=== PATIENT | female | born 1960 | race Caucasian/White ===

== ENCOUNTER 2018-02-06 11:32 | Emergency (ER) | payer BC ==
[~2018-02-06] VITALS: Ht 177.8 cm; Wt 98.0 kg
[~2018-02-06 11:32] MED LIST: KETO10TA PO; ONDA4TAB10 SL
[2018-02-06] MEDS ORDERED: IOHEXOL 300 MG/ML 75 ML VIAL. IV ONE (12:15)
[2018-02-06] MEDS ORDERED: CONTRAST GIVEN MC PRN (12:15)
[2018-02-06 12:36] LABS: BASO % 1 % (0-3); EOS # 0.1 x10^3/uL (0.0-0.7); EOS % 2 % (0-3); HEMATOCRIT 35.8 % (36.0-47.0); HEMOGLOBIN 12.2 g/dL (12.0-15.5); LYMPH # 0.7 x10^3/uL (1.0-4.8); LYMPH % 27 % (24-48); MEAN CORPUSCULAR HEMOGLOBIN 31 pg (25-35); MEAN CORPUSCULAR HGB CONC 34 g/dL (31-37); MEAN CORPUSCULAR VOLUME 90 fL (79-100); MONO # 0.4 x10^3/uL (0.0-1.1); MONO % 16 % (0-9); NEUT # 1.5 x10^3uL (1.8-7.7); NEUT % 54 % (31-73); PLATELET COUNT 225 x10^3/uL (140-400); RED BLOOD COUNT 3.99 x10^6/uL (3.50-5.40); RED CELL DISTRIBUTION WIDTH 16.7 % (11.5-14.5); WHITE BLOOD COUNT 2.8 x10^3/uL (4.0-11.0)
[2018-02-06 13:00] LABS: ALBUMIN 3.2 g/dL (3.4-5.0); CALCIUM 8.8 mg/dL (8.5-10.1); CREATININE 0.7 mg/dL (0.6-1.0); GFR 86.9; TOTAL BILIRUBIN 0.3 mg/dL (0.2-1.0); TOTAL PROTEIN 6.4 g/dL (6.4-8.2)
--- NOTE | 2018-02-06 13:15 | RAD ---
CT ANGIOGRAPHY CHEST Indication: shortness of breath, history of metastatic colon cancer, OMNI 300, 75 ml . Comparison: No comparison is available. Technique: After intravenous contrast administration, CT imaging was performed of the chest. MIP reconstructions were obtained. Exposure: One or more of the following individualized dose reduction techniques were utilized for this examination: 1. Automated exposure control 2. Adjustment of the mA and/or kV according to patient size 3. Use of iterative reconstruction technique. FINDINGS: Pulmonary arteries:No evidence of pulmonary embolism. Thoracic aorta: No evidence of aortic aneurysm. Thyroid gland:Visualized aspect is unremarkable. Lymph nodes:No significant enlargement Heart: No significant pericadial effusion. Esophagus: Unremarkable Pleural spaces: No significant effusion Lungs: Small nodule identified at the right upper lobe, measures 4 mm. No airspace consolidation. Trachea and central airways: Patent Bones: Degenerative spondylosis. Mild left convexity scoliosis. Upper abdomen: Slices through the upper abdomen are limited due to the technique .No obvious acute findings. There is a left chest wall port, with tip identified in the superior vena cava. IMPRESSION: 1. Negative for pulmonary embolism. 2. Small right upper lobe pulmonary nodule, measures 4 mm. Since the patient has a history of metastatic colon cancer, a metastatic lesion is possible. Recommend follow-up CT of the chest, in 3-4 months. Electronically signed by: Velasquez Allen MD (02/06/2018 1:11 PM) [id number]
[2018-02-06] MEDS ORDERED: ALBU8.5H8 INH (13:35)
--- NOTE | 2018-02-06 13:36 | PHYS DOC ---
Past History Past Medical History: Cancer, Pancreatitis, Other Additional Past Medical Histor: Mother had colon cancer, diagnosed in her 50's Past Surgical History: No Surgical History, Smoking: Cigarettes Alcohol Use: Sober Drug Use: None Adult General Chief Complaint Chief Complaint: SHORTNESS OF BREATH HPI HPI Patient is a 57 year old with history of stage IV colon cancer on chemotherapy and history of DVT on Eliquis who presents with complaining of shortness of breath for the last 1 week. Patient complaining of intermittent episodes of shortness of breath with mild activity without palpitation, chest pain, fever and chills, cough and congestion. Patient states she had history of DVT and was on Lovenox for 2 years and she sent the was changed to Eliquis 2.5 mg 2 times a day and his oncologist is concern for possible PE. Review of Systems Review of Systems Constitutional: Denies fever or chills [] Eyes: Denies change in visual acuity, redness, or eye pain [] HENT: Denies nasal congestion or sore throat [] Respiratory: Denies cough, reports shortness of breath [] Cardiovascular: No additional information not addressed in HPI [] GI: Denies abdominal pain, nausea, vomiting, bloody stools or diarrhea [] : Denies dysuria or hematuria [] Musculoskeletal: Denies back pain or joint pain [] Integument: Denies rash or skin lesions [] Neurologic: Denies headache, focal weakness or sensory changes [] Endocrine: Denies polyuria or polydipsia [] All other systems were reviewed and found to be within normal limits, except as documented in this note. Current Medications Current Medications Current Medications Medications (Trade) Dose Ordered Sig/Al Start Time Stop Time Status Last Admin Dose Admin Info (Do NOT chart on this entry -- for MONITORING) 1 each PRN DAILY PRN 02/06/18 12:15 02/08/18 12:14 Iohexol (Omnipaque 300 Mg/ml) 75 ml 1X ONCE 02/06/18 12:15 02/06/18 12:16 DC 02/06/18 12:32 75 ML Allergies Allergies Allergies Coded Allergies Type Severity Reaction Last Updated Verified No Known Drug Allergies 10/13/15 No Physical Exam Physical Exam Constitutional: Well developed, well nourished, no acute distress, non-toxic appearance. [] HENT: Normocephalic, atraumatic, oropharynx moist, no oral exudates, nose normal. [] Eyes: PERRLA, EOMI, conjunctiva normal, no discharge. [] Neck: Normal range of motion, no tenderness, supple, no stridor. [] Cardiovascular:Heart rate regular rhythm, no murmur [] Lungs & Thorax: Bilateral breath sounds clear to auscultation [] Abdomen: Bowel sounds normal, soft, no tenderness, no masses, no pulsatile masses. [] Skin: Warm, dry, no erythema, no rash. [] Back: No tenderness, no CVA tenderness. [] Extremities: No tenderness, no cyanosis, no clubbing, ROM intact, no edema. [] Neurologic: Alert and oriented X 3, normal motor function, normal sensory function, no focal deficits noted. [] Psychologic: Affect normal, judgement normal, mood normal. [] Current Patient Data Vital Signs Vital Signs Date Time Temp Pulse Resp B/P (MAP) Pulse Ox O2 Delivery O2 Flow Rate FiO2 02/06/18 11:51 98.4 93 20 99 Room Air Lab Results Laboratory Tests Test 02/06/18 12:08 White Blood Count 2.8 x10^3/uL (4.0-11.0) L Red Blood Count 3.99 x10^6/uL (3.50-5.40) Hemoglobin 12.2 g/dL (12.0-15.5) Hematocrit 35.8 % (36.0-47.0) L Mean Corpuscular Volume 90 fL (79-100) Mean Corpuscular Hemoglobin 31 pg (25-35) Mean Corpuscular Hemoglobin Concent 34 g/dL (31-37) Red Cell Distribution Width 16.7 % (11.5-14.5) H Platelet Count 225 x10^3/uL (140-400) Neutrophils (%) (Auto) 54 % (31-73) Lymphocytes (%) (Auto) 27 % (24-48) Monocytes (%) (Auto) 16 % (0-9) H Eosinophils (%) (Auto) 2 % (0-3) Basophils (%) (Auto) 1 % (0-3) Neutrophils # (Auto) 1.5 x10^3uL (1.8-7.7) L Lymphocytes # (Auto) 0.7 x10^3/uL (1.0-4.8) L Monocytes # (Auto) 0.4 x10^3/uL (0.0-1.1) Eosinophils # (Auto) 0.1 x10^3/uL (0.0-0.7) Basophils # (Auto) 0.0 x10^3/uL (0.0-0.2) Sodium Level 133 mmol/L (136-145) L Potassium Level 4.0 mmol/L (3.5-5.1) Chloride Level 96 mmol/L (98-107) L Carbon Dioxide Level 26 mmol/L (21-32) Anion Gap 11 (6-14) Blood Urea Nitrogen 11 mg/dL (7-20) Creatinine 0.7 mg/dL (0.6-1.0) Estimated GFR (Cockcroft-Gault) 86.9 BUN/Creatinine Ratio 16 (6-20) Glucose Level 89 mg/dL (70-99) Calcium Level 8.8 mg/dL (8.5-10.1) Total Bilirubin 0.3 mg/dL (0.2-1.0) Aspartate Amino Transferase (AST) 20 U/L (15-37) Alanine Aminotransferase (ALT) 18 U/L (14-59) Alkaline Phosphatase 83 U/L (46-116) Troponin I Quantitative < 0.017 ng/mL (0-0.055) NO-Ffe-Z-Type Natriuretic Peptide 77 pg/mL (0-124) Total Protein 6.4 g/dL (6.4-8.2) Albumin 3.2 g/dL (3.4-5.0) L Albumin/Globulin Ratio 1.0 (1.0-1.7) EKG EKG [] Radiology/Procedures Radiology/[place] [address] IMAGING REPORT Signed PATIENT: HERNANDO MCNAMARA ACCOUNT: [id number] : 1960 LOCATION: ER AGE: 57 SEX: F EXAM STATUS: REG ER ORD. PHYSICIAN: ALEXANDRE BIRCH MD REASON: shortness of breath, history of metastatic colon cancer PROCEDURE: CT ANGIOGRAPHY CHEST CT ANGIOGRAPHY CHEST Indication: shortness of breath, history of metastatic colon cancer, OMNI 300, 75 ml . Comparison: No comparison is available. Technique: After intravenous contrast administration, CT imaging was performed of the chest. MIP reconstructions were obtained. Exposure: One or more of the following individualized dose reduction techniques were utilized for this examination: 1. Automated exposure control 2. Adjustment of the mA and/or kV according to patient size 3. Use of iterative reconstruction technique. FINDINGS: Pulmonary arteries:No evidence of pulmonary embolism. Thoracic aorta: No evidence of aortic aneurysm. Thyroid gland:Visualized aspect is unremarkable. Lymph nodes:No significant enlargement Heart: No significant pericadial effusion. Esophagus: Unremarkable Pleural spaces: No significant effusion Lungs: Small nodule identified at the right upper lobe, measures 4 mm. No airspace consolidation. Trachea and central airways: Patent Bones: Degenerative spondylosis. Mild left convexity scoliosis. Upper abdomen: Slices through the upper abdomen are limited due to the technique .No obvious acute findings. There is a left chest wall port, with tip identified in the superior vena cava. IMPRESSION: 1. Negative for pulmonary embolism. 2. Small right upper lobe pulmonary nodule, measures 4 mm. Since the patient has a history of metastatic colon cancer, a metastatic lesion is possible. Recommend follow-up CT of the chest, in 3-4 months. Electronically signed by: Velasquez Allen MD (02/06/2018 1:11 PM) [id number] DICTATED AND SIGNED BY: VELASQUEZ ALLEN MD DATE: 02/06/18 1300 CC: ALEXANDRE BIRCH MD; KELSEY ALVAREZ MD ~ Course & Med Decision Making Course & Med Decision Making Pertinent Labs and Imaging studies reviewed. (See chart for details) Evaluation of patient in ER showed 67-year-old female patient with history of colon cancer and DVT presented to ER with complaining of shortness of breath for evaluation of PE. Patient had unremarkable physical exam and labs except for white count of 2.8. CT of chest did not show sign of PE but showed 4 mm lung nodule. Patient states she is had the same nodule in her previous CT of lung. Patient plan to follow up with her oncologist a short time. Prescription for albuterol inhaler was given. Dragon Disclaimer Dragon Disclaimer This electronic medical record was generated, in whole or in part, using a voice recognition dictation system. Departure Departure: Impression: Primary Impression: Shortness of breath Additional Impressions: Disease ruled out after examination Metastatic colon cancer in female Leukopenia Lung nodule seen on imaging study Disposition: HOME, SELF-CARE (at 1333) Condition: STABLE Referrals: KELSEY ALAVREZ MD (PCP) Patient Instructions: Shortness of Breath Additional Instructions: Follow-up with your oncologist Follow-up with your primary care physician in 3-5 days Return to ER if not getting better Scripts Albuterol Sulfate (PROAIR HFA INHALER) 8.5 Gm Hfa.aer.ad 2 PUFF INH PRN Q6HRS PRN for SHORTNESS OF BREATH, #1 INHALER 0 Refills Prov: ALEXANDRE BIRCH MD 02/06/18 Problem Qualifiers ALEXANDRE BIRCH MD Feb 06, 2018 13:35
[2018-02-06 13:44] VITALS: BP 143/90
== END 2018-02-06 13:45 | disposition home or self-care (01) ==
LOC: ER 11:32
DX: R06.02 Shortness of breath (principal); C78.5 Secondary malignant neoplasm of large intestine and rectum; D72.819 Decreased white blood cell count, unspecified; R91.1 Solitary pulmonary nodule; F17.210 Nicotine dependence, cigarettes, uncomplicated; Z86.718 Personal history of other venous thrombosis and embolism; Z79.01 Long term (current) use of anticoagulants
CPT/HCPCS: 36415; 71275; 80053; 83880; 84484; 85025; 99284; Q9967

== ENCOUNTER 2018-04-07 17:29 | Emergency (ER) | payer MEDICARE ==
[~2018-04-07] VITALS: Ht 177.8 cm; Wt 100.7 kg
[~2018-04-07 17:29] MED LIST changes: +ALBU2.5V8 INH
[2018-04-07 18:19] LABS: BASO % 1 % (0-3); EOS # 0.1 x10^3/uL (0.0-0.7); EOS % 2 % (0-3); HEMATOCRIT 38.6 % (36.0-47.0); HEMOGLOBIN 13.1 g/dL (12.0-15.5); LYMPH # 0.8 x10^3/uL (1.0-4.8); LYMPH % 19 % (24-48); MEAN CORPUSCULAR HEMOGLOBIN 30 pg (25-35); MEAN CORPUSCULAR HGB CONC 34 g/dL (31-37); MEAN CORPUSCULAR VOLUME 89 fL (79-100); MONO # 0.4 x10^3/uL (0.0-1.1); MONO % 9 % (0-9); NEUT # 2.8 x10^3uL (1.8-7.7); NEUT % 70 % (31-73); PLATELET COUNT 212 x10^3/uL (140-400); RED BLOOD COUNT 4.33 x10^6/uL (3.50-5.40); RED CELL DISTRIBUTION WIDTH 15.8 % (11.5-14.5); WHITE BLOOD COUNT 4.1 x10^3/uL (4.0-11.0)
--- NOTE | 2018-04-07 18:25 | ED.ADGEN ---
Past History Past Medical History: Cancer, Pancreatitis, Other Additional Past Medical Histor: Mother had colon cancer, diagnosed in her 50's Past Surgical History: Cancer Surgery, Smoking: Cigarettes Alcohol Use: Sober Drug Use: None Adult General Chief Complaint Chief Complaint ".. I get chemo .. every 3 weeks for my metastatic colon cancer.. I am a week out... and not feeling well,,,Nausea... I never get nauseated..vomiting since sat.. clear foam... better today.. but then vomited up everything I ate..... this is unusual for me.. and I am having some lower abd. pain ".. HPI HPI Patient is a 58 year old female who presents with with the above history and complaints of nausea vomiting and pain and malaise since Friday. Patient diagnosed with metastatic colon cancer on October 2014. Has been under a series of chemotherapy regimens. Currently on three-week rotations of chemotherapy through . Has had 46 chemotherapy therapy treatments. Patient did have a laparotomy for colon cancer in 2014 but at that time it was metastatic and did not have colonectomy. Patient has not had radiation treatments. Pt. has had regular intervals of various chemotherapy regimens for metastatic colon cancer. Patient follows at . She does in clinic chemotherapy and then takes home chemotherapy meds which she administers over the next 24 hours on a 3 week cycle. Her last chemotherapy was Friday last week. Patient denies any specific ill contacts. No travel. Is on self-administered Lovenox shots. Patient typically does not normally become nauseated , vomit or have diarrhea with her chemotherapy. Patient does have occasional constipation. Patient's labs are monitored as well as CEA levels. Review of Systems Review of Systems Constitutional: Denies fever or chills [] Eyes: Denies change in visual acuity, redness, or eye pain [] HENT: Denies nasal congestion or sore throat [] Respiratory: Denies cough or shortness of breath [] Cardiovascular: No additional information not addressed in HPI [] GI: Lt. lower abdominal pain, nausea, vomiting,. Denies bloody stools or diarrhea [] : Denies dysuria or hematuria [] Musculoskeletal: Denies back pain or joint pain [] Integument: Denies rash or skin lesions [] Neurologic: Denies headache, focal weakness or sensory changes [] Endocrine: Denies polyuria or polydipsia [] All other systems were reviewed and found to be within normal limits, except as documented in this note. Family History Family History Noncontributory Current Medications Current Medications Current Medications Medications (Trade) Dose Ordered Sig/Al Start Time Stop Time Status Last Admin Dose Admin Iohexol (Omnipaque 240 Mg/ml) 30 ml 1X ONCE 04/07/18 19:30 04/07/18 19:31 DC 04/07/18 20:59 30 ML Iohexol (Omnipaque 300 Mg/ml) 75 ml 1X ONCE 04/07/18 19:30 04/07/18 19:31 DC 04/07/18 20:59 75 ML Lactated Ringer's 1,000 ml @ 1,000 mls/hr 1X ONCE 04/07/18 19:15 04/07/18 20:14 DC 04/07/18 20:23 1,000 MLS/HR Ondansetron HCl (Zofran) 8 mg 1X ONCE 04/07/18 21:15 04/07/18 21:16 DC 04/07/18 21:30 8 MG Sodium Chloride 1,000 ml @ 1,000 mls/hr 1X ONCE 04/07/18 18:30 04/07/18 19:29 DC 04/07/18 18:50 1,000 MLS/HR See nursing for home meds Allergies Allergies Allergies Coded Allergies Type Severity Reaction Last Updated Verified apixaban Allergy Severe SOB 04/07/18 Yes Physical Exam Physical Exam Constitutional: Moderately acute distress, non-toxic appearance. [] HENT: Normocephalic, atraumatic, bilateral external ears normal, oropharynx moist, no oral exudates, nose normal. [] Eyes: PERRLA, EOMI, conjunctiva normal, no discharge. Glasses Neck: Normal range of motion, no tenderness, supple, no stridor. [] Cardiovascular: Tachycardia Heart rate regular rhythm, no murmur [] Lungs & Thorax: Bilateral breath sounds equal apex with scattered wheezes on auscultation [The]port on left upper chest wall does not appear to be inflamed Abdomen: Bowel sounds normal, soft, generalized tenderness, some left lower focalization, distended, no masses, no pulsatile masses. []Old surgery scars. Skin: Warm, dry, no erythema, no rash. [] Back: No tenderness, no CVA tenderness. [] Extremities: No tenderness, no cyanosis, no clubbing, ROM intact, no edema. 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 [] Psychologic: Affect anxious, judgement normal, mood normal. [] Current Patient Data Vital Signs Vital Signs Date Time Temp Pulse Resp B/P (MAP) Pulse Ox O2 Delivery O2 Flow Rate FiO2 04/07/18 17:29 98.4 104 18 98 Room Air Lab Results Laboratory Tests Test 04/07/18 17:30 04/07/18 17:54 Urine Collection Type Unknown Urine Color Yellow Urine Clarity Clear Urine pH 6.5 Urine Specific [place] 1.015 Urine Protein Neg (NEG-TRACE) Urine Glucose (UA) Neg mg/dL (NEG) Urine Ketones (Stick) Neg mg/dL (NEG) Urine Blood Trace (NEG) Urine Nitrite Neg (NEG) Urine Bilirubin Neg (NEG) Urine Urobilinogen Dipstick 0.2 mg/dL (0.2 mg/dL) Urine Leukocyte Esterase Neg (NEG) Urine RBC 0 /HPF (0-2) Urine WBC Rare /HPF (0-4) Urine Squamous Epithelial Cells None /LPF Urine Bacteria 0 /HPF (0-FEW) Urine Mucus Slight /LPF White Blood Count 4.1 x10^3/uL (4.0-11.0) Red Blood Count 4.33 x10^6/uL (3.50-5.40) Hemoglobin 13.1 g/dL (12.0-15.5) Hematocrit 38.6 % (36.0-47.0) Mean Corpuscular Volume 89 fL (79-100) Mean Corpuscular Hemoglobin 30 pg (25-35) Mean Corpuscular Hemoglobin Concent 34 g/dL (31-37) Red Cell Distribution Width 15.8 % (11.5-14.5) H Platelet Count 212 x10^3/uL (140-400) Neutrophils (%) (Auto) 70 % (31-73) Lymphocytes (%) (Auto) 19 % (24-48) L Monocytes (%) (Auto) 9 % (0-9) Eosinophils (%) (Auto) 2 % (0-3) Basophils (%) (Auto) 1 % (0-3) Neutrophils # (Auto) 2.8 x10^3uL (1.8-7.7) Lymphocytes # (Auto) 0.8 x10^3/uL (1.0-4.8) L Monocytes # (Auto) 0.4 x10^3/uL (0.0-1.1) Eosinophils # (Auto) 0.1 x10^3/uL (0.0-0.7) Basophils # (Auto) 0.0 x10^3/uL (0.0-0.2) Erythrocyte Sedimentation Rate 15 (0-25) Sodium Level 133 mmol/L (136-145) L Potassium Level 3.8 mmol/L (3.5-5.1) Chloride Level 97 mmol/L (98-107) L Carbon Dioxide Level 28 mmol/L (21-32) Anion Gap 8 (6-14) Blood Urea Nitrogen 9 mg/dL (7-20) Creatinine 0.8 mg/dL (0.6-1.0) Estimated GFR (Cockcroft-Gault) 74.2 BUN/Creatinine Ratio 11 (6-20) Glucose Level 98 mg/dL (70-99) Calcium Level 8.8 mg/dL (8.5-10.1) Total Bilirubin 0.2 mg/dL (0.2-1.0) Aspartate Amino Transferase (AST) 12 U/L (15-37) L Alanine Aminotransferase (ALT) 15 U/L (14-59) Alkaline Phosphatase 74 U/L (46-116) Creatine Kinase 47 U/L (26-192) Troponin I Quantitative < 0.017 ng/mL (0-0.055) Total Protein 6.8 g/dL (6.4-8.2) Albumin 3.3 g/dL (3.4-5.0) L Albumin/Globulin Ratio 0.9 (1.0-1.7) L Amylase Level 34 U/L (25-115) Lipase 113 U/L (73-393) EKG EKG [] Radiology/Procedures Radiology/Procedures My interpretation of acute abdomen film shows no acute findings cardiopulmonary. Does have a port on left. No free air in the diaphragm. Nonspecific bowel gas pattern. There is stool in the colon. Some findings of possible mild constipation[]. CT of abdomen shows mild wall thinking knee on the right colon-this previous was area of diagnosis of cancer. She has a normal appendix. Has a uterine Leiomyoma and Rt ovary mass. No findings of obvious bowel obstruction or perforation or hydronephrosis. See formal report when available. Noted all her findings appear to be on right side of abdomen. No obvious findings to account for her left lower abdomen pain. Course & Med Decision Making Course & Med Decision Making Pertinent Labs and Imaging studies reviewed. (See chart for details) Reviewed all labs available and CT findings with patient. Patient currently states she feels better and wishes to be discharged. Patient follow-up with her primary care and oncology. Patient to review CT findings and labs with her primary care and oncology. Patient to stay on clear fluid diet tonight. No solid or milk products. Return if any concerns. Consider dose of milk of magnesia if she feels constipation is contributing to her left lower abdomen pain. Patient may have Zofran 8 mg up 4 times a day for nausea and vomiting. Must follow-up. [] Final Impression Final Impression 1. Nausea and vomiting[] 2. Abdomen pain 3. History of metastatic colon cancer- Dx. October 2014. 4. On Chemotherapy -3 week cycle- currently 1 week out since last infusion Dragon Disclaimer Dragon Disclaimer This electronic medical record was generated, in whole or in part, using a voice recognition dictation system. Dragon Disclaimer This chart was dictated in whole or in part using Voice Recognition software in a busy, high-work load, and often noisy Emergency Department environment. It may contain unintended and wholly unrecognized errors or omissions. Discharge Summary Visit Information Final Diagnosis Problems Medical Problems: (1) Abdominal pain Status: Acute Brief Hospital Course Allergies Allergies Coded Allergies Type Severity Reaction Last Updated Verified apixaban Allergy Severe SOB 04/07/18 Yes Vital Signs Vital Signs Date Time Temp Pulse Resp B/P (MAP) Pulse Ox O2 Delivery O2 Flow Rate FiO2 04/07/18 17:29 98.4 104 18 98 Room Air Lab Results Laboratory Tests Test 04/07/18 17:30 04/07/18 17:54 Urine Collection Type Unknown Urine Color Yellow Urine Clarity Clear Urine pH 6.5 Urine Specific [place] 1.015 Urine Protein Neg (NEG-TRACE) Urine Glucose (UA) Neg mg/dL (NEG) Urine Ketones (Stick) Neg mg/dL (NEG) Urine Blood Trace (NEG) Urine Nitrite Neg (NEG) Urine Bilirubin Neg (NEG) Urine Urobilinogen Dipstick 0.2 mg/dL (0.2 mg/dL) Urine Leukocyte Esterase Neg (NEG) Urine RBC 0 /HPF (0-2) Urine WBC Rare /HPF (0-4) Urine Squamous Epithelial Cells None /LPF Urine Bacteria 0 /HPF (0-FEW) Urine Mucus Slight /LPF White Blood Count 4.1 x10^3/uL (4.0-11.0) Red Blood Count 4.33 x10^6/uL (3.50-5.40) Hemoglobin 13.1 g/dL (12.0-15.5) Hematocrit 38.6 % (36.0-47.0) Mean Corpuscular Volume 89 fL (79-100) Mean Corpuscular Hemoglobin 30 pg (25-35) Mean Corpuscular Hemoglobin Concent 34 g/dL (31-37) Red Cell Distribution Width 15.8 % (11.5-14.5) Platelet Count 212 x10^3/uL (140-400) Neutrophils (%) (Auto) 70 % (31-73) Lymphocytes (%) (Auto) 19 % (24-48) Monocytes (%) (Auto) 9 % (0-9) Eosinophils (%) (Auto) 2 % (0-3) Basophils (%) (Auto) 1 % (0-3) Neutrophils # (Auto) 2.8 x10^3uL (1.8-7.7) Lymphocytes # (Auto) 0.8 x10^3/uL (1.0-4.8) Monocytes # (Auto) 0.4 x10^3/uL (0.0-1.1) Eosinophils # (Auto) 0.1 x10^3/uL (0.0-0.7) Basophils # (Auto) 0.0 x10^3/uL (0.0-0.2) Erythrocyte Sedimentation Rate 15 (0-25) Sodium Level 133 mmol/L (136-145) Potassium Level 3.8 mmol/L (3.5-5.1) Chloride Level 97 mmol/L (98-107) Carbon Dioxide Level 28 mmol/L (21-32) Anion Gap 8 (6-14) Blood Urea Nitrogen 9 mg/dL (7-20) Creatinine 0.8 mg/dL (0.6-1.0) Estimated GFR (Cockcroft-Gault) 74.2 BUN/Creatinine Ratio 11 (6-20) Glucose Level 98 mg/dL (70-99) Calcium Level 8.8 mg/dL (8.5-10.1) Total Bilirubin 0.2 mg/dL (0.2-1.0) Aspartate Amino Transf (AST/SGOT) 12 U/L (15-37) Alanine Aminotransferase (ALT/SGPT) 15 U/L (14-59) Alkaline Phosphatase 74 U/L (46-116) Creatine Kinase 47 U/L (26-192) Troponin I Quantitative < 0.017 ng/mL (0-0.055) Total Protein 6.8 g/dL (6.4-8.2) Albumin 3.3 g/dL (3.4-5.0) Albumin/Globulin Ratio 0.9 (1.0-1.7) Amylase Level 34 U/L (25-115) Lipase 113 U/L (73-393) Brief Hospital Course Ms. Lorenzo is a 58 old female who presented with known extensive metastatic colon cancer in left lower quadrant abdomen pain. She is 1 week out from last chemotherapy. Discharge Information Condition at Discharge: Improved, Stable Disposition/Orders: D/C to Home Dischare Medications Current Medications Sodium Chloride 1,000 ml @ 1,000 mls/hr 1X ONCE IV Last administered on at 18:50; Admin Dose 1,000 MLS/HR; Start 04/07/18 at 18:30; Stop 04/07/18 at 19: 29; Status DC Ondansetron HCl (Zofran) 8 mg 1X ONCE IV Last administered on 04/07/18at 18:51; Admin Dose 8 MG; Start 04/07/18 at 18:30; Stop 04/07/18 at 18:31; Status DC Lactated Ringer's 1,000 ml @ 1,000 mls/hr 1X ONCE IV Last administered on 04/07at 20:23; Admin Dose 1,000 MLS/HR; Start 04/07/18 at 19:15; Stop 04/07/18 at 20 :14; Status DC Iohexol (Omnipaque 240 Mg/ml) 30 ml 1X ONCE PO Last administered on 04/07/18at 20:59; Admin Dose 30 ML; Start 04/07/18 at 19:30; Stop 04/07/18 at 19:31; Status DC Iohexol (Omnipaque 300 Mg/ml) 75 ml 1X ONCE IV Last administered on 04/07/18at 20:59; Admin Dose 75 ML; Start 04/07/18 at 19:30; Stop 04/07/18 at 19:31; Status DC Ondansetron HCl (Zofran) 8 mg 1X ONCE IV Last administered on 04/07/18at 21:30; Admin Dose 8 MG; Start 04/07/18 at 21:15; Stop 04/07/18 at 21:16; Status DC Active Scripts Active Zofran (Ondansetron Hcl) 8 Mg Tablet 8 Mg PO QIDPRN PRN Proair Hfa Inhaler (Albuterol Sulfate) 8.5 Gm Hfa.aer.ad 2 Puff INH PRN Q6HRS PRN Reported Zofran Odt (Ondansetron) 4 Mg Tab.rapdis 1 Tab SL Q8HRS Ketorolac Tromethamine 10 Mg Tablet 1 Tab PO TID LORETTA LUGO MD Apr 07, 2018 18:25
[2018-04-07 18:26] LABS: BACTERIA,URINE 0 /HPF (0-FEW); BILIRUBIN,URINE NEG (NEG); CLARITY,URINE CLEAR; COLOR,URINE YELLOW; GLUCOSE,URINE NEG (NEG); NITRITE,URINE NEG (NEG); RBC,URINE 0 /HPF (0-2); UROBILINOGEN,URINE 0.2 mg/dL (0.2 mg/dL); WBC,URINE RARE /HPF (0-4)
[2018-04-07 18:32] LABS: ALBUMIN 3.3 g/dL (3.4-5.0); ALBUMIN/GLOBULIN RATIO 0.9 (1.0-1.7); CALCIUM 8.8 mg/dL (8.5-10.1); CREATININE 0.8 mg/dL (0.6-1.0); GFR 74.2; POTASSIUM 3.8 mmol/L (3.5-5.1); TOTAL BILIRUBIN 0.2 mg/dL (0.2-1.0); TOTAL PROTEIN 6.8 g/dL (6.4-8.2)
[2018-04-07 18:42] LABS: AMYLASE 34 U/L (25-115); LIPASE 113 U/L (73-393)
[2018-04-07] MEDS: IV NORMAL SALINE 1,000ML 1,000 ML IV ONE (18:50)
[2018-04-07] MEDS: ONDANSETRON PF 4 MG/2 ML VIAL. IV ONE ×2 (18:51→21:30)
[2018-04-07] MEDS: IV RINGERS SOLUTION,LACTATED 1,000 ML IV ONE (20:23)
[2018-04-07] MEDS: IOHEXOL 240 MG/ML 50ML VIAL. PO ONE (20:59)
[2018-04-07] MEDS: IOHEXOL 300 MG/ML 75 ML VIAL. IV ONE (20:59)
[2018-04-07 21:09] VITALS: BP 158/81
[2018-04-07] MEDS ORDERED: ONDA8TAB9 PO (21:56)
--- NOTE | 2018-04-07 23:27 | RAD ---
Three-view acute abdominal series. HISTORY: Metastatic colon cancer, abdominal pain, nausea and vomiting 3 views were taken for an acute abdominal series. Lungs are clear. Heart is normal in size. There is no effusion. There is a Port-A-Cath on the left. There is no free air on the upright view the abdomen or abnormal air-fluid levels. There is mild stool in the right colon. There is a probable tablet in the right colon. There is no bowel obstruction. There is mild lumbar facet arthritis. A definite bony destructive process is not identified. There are no abnormal calcifications. IMPRESSION: 1. No acute infiltrates. 2. No bowel obstruction or acute finding in the abdomen. Electronically signed by: Petey Cabezas MD (04/07/2018 6:48 PM) [facility]
--- NOTE | 2018-04-07 23:27 | RAD ---
CT abdomen and pelvis with contrast. HISTORY: Left-sided abdominal pain, nausea and vomiting, history colon cancer CT scan of the abdomen pelvis was done using 75 mL Isovue-370 contrast. Lung bases are clear. There is no effusion. There is a tiny lesion in the right liver on image #11 which is nonspecific. There is no other definite evidence of metastatic disease in the liver at this time. There is no calcified gallstone. Spleen and adrenal glands are normal. There is a slightly dilated right renal collecting system. There is no renal or ureteral calculus noted. There is no free air or ascites. There is no bowel obstruction. Appendix is normal. There is moderate stool in the colon. There is an enlarged right ovary versus a pedunculated uterine leiomyoma adjacent to the ovary on the right. There is a 1.2 cm left ovarian cyst. There is mild facet arthritis in the lower lumbar spine. There is no bowel obstruction. There is a prominent duodenal diverticulum. There is slight wall thickening in the right colon a mild colitis or colitis would be possible. IMPRESSION: 1. Mild wall thickening in the right colon possible mild colitis. 2. Normal appendix. 3. Pedunculated uterine leiomyoma or enlarged right ovary with possible ovarian mass. 4. Tiny liver lesion too small to characterize. PQRS Compliance Statement: One or more of the following individualized dose reduction techniques were utilized for this examination: 1. Automated exposure control 2. Adjustment of the mA and/or kV according to patient size 3. Use of iterative reconstruction technique Electronically signed by: Petey Cabezas MD (04/07/2018 9:27 PM) [facility]
--- NOTE | 2018-04-09 11:33 | EKG ---
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
== END 2018-04-07 22:05 | disposition home or self-care (01) ==
LOC: ER 17:29
DX: R11.2 Nausea with vomiting, unspecified (principal); R10.32 Left lower quadrant pain; C18.9 Malignant neoplasm of colon, unspecified; F17.210 Nicotine dependence, cigarettes, uncomplicated; Z85.038 Personal history of other malignant neoplasm of large intestine; Z88.8 Allergy status to other drugs, medicaments and biological substances; Z98.890 Other specified postprocedural states
CPT/HCPCS: 36415; 74022; 74177; 80053; 81001; 82150; 82550; 83690; 84484; 85025; 85651; 87040; 93005; 96361; 96374; 96376; J2405; J7120; Q9966; Q9967; 99284-25; J7030

== ENCOUNTER 2018-07-15 15:16 | Emergency (ER) | payer MEDICARE ==
[~2018-07-15] VITALS: Ht 177.8 cm; Wt 99.8 kg
[~2018-07-15 15:16] MED LIST changes: +ONDA8TAB9 PO
[2018-07-15] MEDS ORDERED: IV NORMAL SALINE 1,000ML 1,000 ML IV SCH (15:34)
--- NOTE | 2018-07-15 15:39 | PHYS DOC ---
Past History Past Medical History: Cancer, Pancreatitis, Other Additional Past Medical Histor: Mother had colon cancer, diagnosed in her 50's Past Surgical History: Cancer Surgery, Smoking: Cigarettes Alcohol Use: Sober Drug Use: None Adult General Chief Complaint Chief Complaint: SHORTNESS OF BREATH [facility] HPI Patient is a 58-year-old female who presents with complaint of shortness of breath that started a couple days ago but states that yesterday she really started to notice it. She states that she was out planting araujo and states that his long as she was sitting down, her shortness of breath was manageable but when she would get up and move around, she would get very short of breath. She states that today she is noticed that she can walk about 10 steps before becoming very short of breath. 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 She states her last INR was 4.3 and that was yesterday. She denies any chest pain or cough associated with the shortness of breath. She also indicates that she was told that she was anemic but is not sure what the numbers are. She denies any fever. Patient states that rest improves her symptoms and exertion worsens the symptoms. Review of Systems Review of Systems Constitutional: Denies fever or chills [] Respiratory: Complains of shortness of breath [] Cardiovascular: No additional information not addressed in HPI [] GI: Denies abdominal pain, nausea, vomiting or diarrhea [] Integument: Denies rash or skin lesions [] Neurologic: Denies headache, focal weakness or sensory changes [] All other systems were reviewed and found to be within normal limits, except as documented in this note. Allergies Allergies Allergies Coded Allergies Type Severity Reaction Last Updated Verified apixaban Allergy Severe SOB 04/07/18 Yes Physical Exam Physical Exam Constitutional: Well developed, well nourished, no acute distress, non-toxic appearance. [] HENT: Normocephalic, atraumatic, bilateral external ears normal, oropharynx moist, no oral exudates, nose normal. [] Eyes: PERRLA, EOMI, conjunctiva normal, no discharge. [] Neck: Normal range of motion, no tenderness, supple, no stridor. [] Cardiovascular:Heart rate regular rhythm, no murmur [] Lungs & Thorax: Bilateral breath sounds clear to auscultation [] Abdomen: Bowel sounds normal, soft, no tenderness. [] Skin: Warm, dry, no erythema, no rash. [] Extremities: No tenderness, no cyanosis, no clubbing, ROM intact. [] Neurologic: Alert and oriented X 3, no focal deficits noted. [] EKG EKG [] Radiology/Procedures Radiology/Procedures [] Impressions: PROCEDURE: CHEST PA & LATERAL Chest, PA and Lateral: Technique: PA and lateral views of the chest were obtained. History: Dyspnea. Comparison: 04/07/2018. Findings: The heart and pulmonary vasculature appear within normal limits. The lungs are clear. The pleural margins are clear. Left-sided Port-A-Cath is unchanged. Mild degenerative changes thoracic spine. Impression: No acute chest process is seen. Electronically signed by: Bharath Diggs MD (07/15/2018 3:53 PM) [facility] Course & Med Decision Making Course & Med Decision Making Pertinent Labs and Imaging studies reviewed. (See chart for details) [] Dragon Disclaimer Dragon Disclaimer This electronic medical record was generated, in whole or in part, using a voice recognition dictation system. Departure Departure: Impression: Primary Impression: Dyspnea Disposition: HOME, SELF-CARE Condition: STABLE Referrals: CAROLINE REDDY (PCP) Patient Instructions: Shortness of Breath Problem Qualifiers Primary Impression: Dyspnea Dyspnea type: unspecified Qualified Codes: R06.00 - Dyspnea, unspecified RAMIN FRY Jr. DO July 15, 2018 15:39
--- NOTE | 2018-07-15 15:55 | RAD ---
Chest, PA and Lateral: Technique: PA and lateral views of the chest were obtained. History: Dyspnea. Comparison: 04/07/2018. Findings: The heart and pulmonary vasculature appear within normal limits. The lungs are clear. The pleural margins are clear. Left-sided Port-A-Cath is unchanged. Mild degenerative changes thoracic spine. Impression: No acute chest process is seen. Electronically signed by: Bharath Diggs MD (07/15/2018 3:53 PM) [place] [id number]
[2018-07-15 16:10] LABS: BASO % 1 % (0-3); EOS # 0.1 x10^3/uL (0.0-0.7); EOS % 2 % (0-3); HEMATOCRIT 28.3 % (36.0-47.0); HEMOGLOBIN 9.3 g/dL (12.0-15.5); LYMPH # 0.7 x10^3/uL (1.0-4.8); LYMPH % 17 % (24-48); MEAN CORPUSCULAR HEMOGLOBIN 27 pg (25-35); MEAN CORPUSCULAR HGB CONC 33 g/dL (31-37); MEAN CORPUSCULAR VOLUME 83 fL (79-100); MONO # 0.6 x10^3/uL (0.0-1.1); MONO % 15 % (0-9); NEUT # 2.5 x10^3uL (1.8-7.7); NEUT % 65 % (31-73); PLATELET COUNT 282 x10^3/uL (140-400); RED BLOOD COUNT 3.42 x10^6/uL (3.50-5.40); RED CELL DISTRIBUTION WIDTH 19.8 % (11.5-14.5); WHITE BLOOD COUNT 3.9 x10^3/uL (4.0-11.0)
[2018-07-15 16:29] LABS: ALBUMIN 2.9 g/dL (3.4-5.0); ALBUMIN/GLOBULIN RATIO 0.9 (1.0-1.7); CALCIUM 8.7 mg/dL (8.5-10.1); CREATININE 0.7 mg/dL (0.6-1.0); GFR 86.6; POTASSIUM 3.6 mmol/L (3.5-5.1); TOTAL BILIRUBIN 0.3 mg/dL (0.2-1.0); TOTAL PROTEIN 6.2 g/dL (6.4-8.2)
--- NOTE | 2018-07-15 16:50 | EKG ---
[address] [address] Test Date: 2018-07-15 Test Time: 15:42:02 Pat Name: HERNANDO MCNAMARA Department: Room: Gender: F Post Acute Care Registered Nurse: : 1960 Requested By: RAMIN FRY Order Number: [id number] Reading MD: Danny Summers Measurements Intervals [place] Rate: 95 P: 31 [place]: 156 QRS: -17 QRSD: 72 T: 44 QT: 326 QTc: 413 Interpretive Statements SINUS RHYTHM LEFTWARD AXIS Electronically Signed On 08-07-2018 12:06:29 CDT by Danny Summers
[2018-07-15 17:37] VITALS: BP 152/70
== END 2018-07-15 18:01 | disposition home or self-care (01) ==
LOC: ER 15:16
DX: R06.00 Dyspnea, unspecified (principal); F17.210 Nicotine dependence, cigarettes, uncomplicated; Z86.718 Personal history of other venous thrombosis and embolism; Z88.8 Allergy status to other drugs, medicaments and biological substances; Z79.01 Long term (current) use of anticoagulants
CPT/HCPCS: 36415; 71046; 80053; 83880; 84484; 85025; 85379; 85610; 93005; 99285-25; J7030

== ENCOUNTER 2018-08-28 16:41 | Emergency (ER) | payer MEDICARE ==
[~2018-08-28] VITALS: Ht 177.8 cm; Wt 94.3 kg
--- NOTE | 2018-08-28 17:13 | PHYS DOC ---
Past History Past Medical History: Cancer, Pancreatitis, Other Additional Past Medical Histor: Mother had colon cancer, diagnosed in her 50's (FELIX CHEUNG DO) Past Surgical History: Cancer Surgery, (FELIX CHEUNG DO) Smoking: Cigarettes Alcohol Use: Sober Drug Use: None (FELIX CHEUNG DO) Adult General Chief Complaint Chief Complaint: ABDOMINAL PAIN HPI HPI 58-year-old female presents with abdominal pain and dysuria. She has had chronic, intermittent abdominal pain for the last 6 months. She has history of colon cancer for which she is getting chemotherapy. She has a generalized cramping sensation around her umbilicus. It comes and goes at random. For the last 1 week, the patient states that it has been more intense than usual and she is scheduled to see GI next week. She denies fever or chills. She has nausea most of the time and most significantly after she eats. She has had decreased appetite the last few days. She presents today because this pain has been so persistent and she now has lower abdominal heaviness, increased urinary frequency, and dysuria. (FELIX CHEUNG DO) Review of Systems Review of Systems Constitutional: Denies fever or chills [] Eyes: Denies change in visual acuity, redness, or eye pain [] HENT: Denies nasal congestion or sore throat [] Respiratory: Denies cough or shortness of breath [] Cardiovascular: No additional information not addressed in HPI [] GI: periumbilical abdominal pain, nausea. Denies vomiting, bloody stools or diarrhea [] : Dysuria[] Musculoskeletal: Denies back pain or joint pain [] Integument: Denies rash or skin lesions [] Neurologic: Denies headache, focal weakness or sensory changes [] Endocrine: Denies polyuria or polydipsia [] All other systems were reviewed and found to be within normal limits, except as documented in this note. (FELIX CHEUNG DO) Current Medications Current Medications Current Medications Medications (Trade) Dose Ordered Sig/Al Start Time Stop Time Status Last Admin Dose Admin Iohexol (Omnipaque 300 Mg/ml) 75 ml 1X ONCE 08/28/18 17:15 08/28/18 17:16 Ondansetron HCl (Zofran) 4 mg 1X ONCE 08/28/18 17:15 08/28/18 17:16 Sodium Chloride 1,000 ml @ 1,000 mls/hr 1X ONCE 08/28/18 17:15 08/28/18 18:14 (FELIX CHEUNG DO) Allergies Allergies Allergies Coded Allergies Type Severity Reaction Last Updated Verified apixaban Allergy Severe SOB 04/07/18 Yes (FELIX CHEUNG DO) Physical Exam Physical Exam Constitutional: Well developed, well nourished, no acute distress, non-toxic appearance. [] HENT: Normocephalic, atraumatic, bilateral external ears normal, oropharynx moist, no oral exudates, nose normal. [] Eyes: PERRLA, EOMI, conjunctiva normal, no discharge. [] Neck: Normal range of motion, no tenderness, supple, no stridor. [] Cardiovascular:Heart rate regular rhythm, no murmur [] Lungs & Thorax: Bilateral breath sounds clear to auscultation [] Abdomen: Bowel sounds normal, soft, periumbilical tenderness, no masses, no pulsatile masses. [] Skin: Warm, dry, no erythema, no rash. [] Back: No tenderness, no CVA tenderness. [] Extremities: No tenderness, no cyanosis, no clubbing, ROM intact, no edema. [] Neurologic: Alert and oriented X 3, normal motor function, normal sensory function, no focal deficits noted. [] Psychologic: Affect normal, judgement normal, mood normal. [] (FELIX CHEUNG DO) Current Patient Data Vital Signs Vital Signs Date Time Temp Pulse Resp B/P (MAP) Pulse Ox O2 Delivery O2 Flow Rate FiO2 08/28/18 16:54 98.2 100 18 98 Room Air (FELIX CHEUNG DO) EKG EKG [] (FELIX CHEUNG DO) Radiology/Procedures Radiology/Procedures [] (FELIX CHEUNG DO) Radiology/Procedures [address] [place] [id number] IMAGING REPORT Signed PATIENT: HERNANDO MCNAMARA ACCOUNT: [id number] : 1960 LOCATION: ER AGE: 58 SEX: F EXAM STATUS: REG ER ORD. PHYSICIAN: FELIX CHEUNG DO REASON: abdominal pain, hx colon ca PROCEDURE: CT ABD PELV W/ IV CONTRST ONLY CT abdomen and pelvis with contrast PQRS statement: CT scans at this facility use dose reduction including either automated exposure control, iterative reconstructions, and /or weight based radiation dosing via mA and kV modification when appropriate to reduce radiation dose to as low as reasonably achievable. HISTORY: Abdominal pain. History of colon cancer. TECHNIQUE: Helical CT imaging of the abdomen and pelvis was acquired with 75 mL Omnipaque 300 intravenous contrast. COMPARISON: CT abdomen and pelvis April 07, 2018. Abdomen findings: Development of mild pericardial effusion since the prior exam. Lung bases unremarkable. Lumbar disc disease. There is subjectively low wall thickening of the duodenum and mild surrounding ground glass edema as well as thickening of the anterior pararenal fascia new from the prior exam raising the possibility of duodenitis. Thank otitis is less likely given no obvious edema of the adjacent pancreas. Kidneys, adrenals, spleen, liver and gallbladder are unremarkable. Mild stasis within the duodenum. No bowel obstruction evident. Appendix is negative. There is focal circumferential wall thickening and luminal narrowing of the ascending colon on coronal image 24 and on the axial images 43-47 with mild surrounding groundglass edema of the surrounding fat this is similar the prior exam, given the focal nature and persistence raises the possibility of colon adenocarcinoma. Sigmoid diverticulosis. No abdominal fluid or enlarged adenopathy. Pelvis findings: At the right adnexa there is a 3 cm peripherally calcified mass which could be a pedunculated uterine leiomyoma or an ovarian mass, stable. Left adnexa, bladder, rectum and bones are unremarkable. Small volume of dependent pelvic fluid. IMPRESSION: 1. Mild wall thickening and surrounding edema of the duodenum likely duodenitis. Associated pancreatitis is less likely. 2. Focal circumferential soft tissue density and wall thickening narrowing the lumen of the ascending colon, raising concern for adenocarcinoma. Consider correlation with colonoscopy. 3. Appendix is negative. 4. Mild pericardial effusion new from the prior study. 5. 3 cm right adnexal mass likely a pedunculated right uterine fundus leiomyoma versus a right ovarian mass. Electronically signed by: Quin Hidalgo MD (08/28/2018 5:51 PM) [facility] DICTATED AND SIGNED BY: QUIN HIDALGO MD DATE: 08/28/18 [id number] CC: FELIX CHEUNG DO; CAROLINE REDDY ~ (LORETTA STOVALL MD) Course & Med Decision Making Course & Med Decision Making Pertinent Labs and Imaging studies reviewed. (See chart for details) The patient's workup is pending. I'm signing the patient out to Dr. Stovall at 1815. [] (FELIX CHEUNG DO) Course & Med Decision Making Impression: 1. Abdomen Pain-right flank and upper quadrant 2. Duodenitis 3. Colon Ca- Chemo every 3 weeks- due ( ascending colon) 4. Adnexal mass, Uterine versus ovarian 3 cm 5. UTI 6. Leukopenia 3.2 ( last 2.5) 7. Anemia Hgb 10 (last 10), Hypo chromic Microcytic 8. Malnutrition Alb. 2.9 Discussed tx. plan with and pt. Pt. declines admission and or transfer. Will treat UTI with Levaquin daily for 5 days. Start treatment for duodenitis with omeprazole 40 a day and Carafate 4 times a day. Patient switch to Zantac 100 mg twice a day after 2 weeks, omeprazole. Consider follow-up with GI for EGD. Follow up with primary. Follow-up oncology. Follow-up cultures. Return if any concerns. Patient to stop all NSAIDs. Will start on Percocet for marked discomfort. Clear fluids x 24- 48 hrs. Must have bowel rest. (LORETTA STOVALL MD) Dragon Disclaimer Dragon Disclaimer This electronic medical record was generated, in whole or in part, using a voice recognition dictation system. (FELIX CHEUNG DO) Departure Departure: Referrals: CAROLINE REDDY (PCP) Scripts Levofloxacin (LEVAQUIN) 500 Mg Tablet 500 MG PO DAILY for UTI for 5 Days, #5 TAB Prov: LORETTA STOVALL MD 08/28/18 Ondansetron Hcl (ZOFRAN) 8 Mg Tablet 8 MG PO QIDPRN PRN for NAUSEA/VOMITING, #30 BOTTLE Prov: LORETTA STOVALL MD 08/28/18 Oxycodone Hcl/Acetaminophen (PERCOCET 5-325 MG TABLET ) 1 Each Tablet 2 TAB PO PRN Q6HRS PRN for PAIN, #30 TAB Prov: LORETTA STOVALL MD 08/28/18 Sucralfate (CARAFATE) 1 Gm/10 Ml Oral.susp 1 GM PO QID for duodenitis, #120 LIQUID Prov: LORETTA STOVALL MD 08/28/18 Ranitidine Hcl (ZANTAC) 300 Mg Tablet 300 MG PO BID for duodentitis, #120 TAB Prov: LORETTA STOVALL MD 08/28/18 Omeprazole (OMEPRAZOLE) 40 Mg Capsule.dr 40 MG PO DAILY for duodenitis, #30 CAP Prov: LORETTA STOVALL MD 08/28/18 Discharge Summary Visit Information Final Diagnosis Problems Medical Problems: (1) Duodenal anomaly Status: Acute (LORETTA STOVALL MD) Brief Hospital Course Allergies Allergies Coded Allergies Type Severity Reaction Last Updated Verified apixaban Allergy Severe SOB 04/07/18 Yes Vital Signs Vital Signs Date Time Temp Pulse Resp B/P (MAP) Pulse Ox O2 Delivery O2 Flow Rate FiO2 08/28/18 19:15 16 98 Room Air 08/28/18 19:06 89 163/91 (115) 08/28/18 16:54 98.2 Lab Results Laboratory Tests Test 08/28/18 17:19 08/28/18 18:14 White Blood Count 3.2 x10^3/uL (4.0-11.0) Red Blood Count 4.19 x10^6/uL (3.50-5.40) Hemoglobin 10.0 g/dL (12.0-15.5) Hematocrit 32.6 % (36.0-47.0) Mean Corpuscular Volume 78 fL (79-100) Mean Corpuscular Hemoglobin 24 pg (25-35) Mean Corpuscular Hemoglobin Concent 31 g/dL (31-37) Red Cell Distribution Width 21.7 % (11.5-14.5) Platelet Count 350 x10^3/uL (140-400) Neutrophils (%) (Auto) 62 % (31-73) Lymphocytes (%) (Auto) 16 % (24-48) Monocytes (%) (Auto) 18 % (0-9) Eosinophils (%) (Auto) 3 % (0-3) Basophils (%) (Auto) 1 % (0-3) Neutrophils # (Auto) 2.0 x10^3uL (1.8-7.7) Lymphocytes # (Auto) 0.5 x10^3/uL (1.0-4.8) Monocytes # (Auto) 0.6 x10^3/uL (0.0-1.1) Eosinophils # (Auto) 0.1 x10^3/uL (0.0-0.7) Basophils # (Auto) 0.0 x10^3/uL (0.0-0.2) Platelet Estimate Adequate (ADEQUATE) Platelet Clumps, EDTA Present Hypochromasia Slight Poikilocytosis Slight Anisocytosis Mod Microcytosis Slight Ovalocytes Occ Sodium Level 136 mmol/L (136-145) Potassium Level 4.2 mmol/L (3.5-5.1) Chloride Level 99 mmol/L (98-107) Carbon Dioxide Level 26 mmol/L (21-32) Anion Gap 11 (6-14) Blood Urea Nitrogen 9 mg/dL (7-20) Creatinine 0.7 mg/dL (0.6-1.0) Estimated GFR (Cockcroft-Gault) 86.6 BUN/Creatinine Ratio 13 (6-20) Glucose Level 83 mg/dL (70-99) Calcium Level 8.9 mg/dL (8.5-10.1) Total Bilirubin 0.3 mg/dL (0.2-1.0) Aspartate Amino Transf (AST/SGOT) 24 U/L (15-37) Alanine Aminotransferase (ALT/SGPT) 28 U/L (14-59) Alkaline Phosphatase 90 U/L (46-116) Total Protein 6.2 g/dL (6.4-8.2) Albumin 2.9 g/dL (3.4-5.0) Albumin/Globulin Ratio 0.9 (1.0-1.7) Lipase 118 U/L (73-393) Urine Collection Type Unknown Urine Color Yellow Urine Clarity Cloudy Urine pH 7.0 Urine Specific [place] 1.010 Urine Protein Neg (NEG-TRACE) Urine Glucose (UA) Neg mg/dL (NEG) Urine Ketones (Stick) Neg mg/dL (NEG) Urine Blood Trace (NEG) Urine Nitrite Neg (NEG) Urine Bilirubin Neg (NEG) Urine Urobilinogen Dipstick 0.2 mg/dL (0.2 mg/dL) Urine Leukocyte Esterase Mod (NEG) Urine RBC 0 /HPF (0-2) Urine WBC 11-20 /HPF (0-4) Urine Squamous Epithelial Cells Occ /LPF Urine Bacteria Few /HPF (0-FEW) Brief Hospital Course Ms. Mcnamara is a 58 old female who presented with duodenitis and urinary tract infection. History of colon cancer on chemotherapy (LORETTA STOVALL MD) Discharge Information Condition at Discharge: Improved Disposition/Orders: D/C to Home Dischare Medications Current Medications Sodium Chloride 1,000 ml @ 1,000 mls/hr 1X ONCE IV Last administered on 08/28/18 17:32; Start 08/28/18 at 17:15; Stop 08/28/18 at 18:14; Status DC Ondansetron HCl (Zofran) 4 mg 1X ONCE IV Last administered on 08/28/18at 17:32; Start 08/28/18 at 17:15; Stop 08/28/18 at 17:17; Status DC Iohexol (Omnipaque 300 Mg/ml) 75 ml 1X ONCE IV Last administered on 08/28/18at 17:22; Start 08/28/18 at 17:15; Stop 08/28/18 at 17:17; Status DC Ondansetron HCl (Zofran) 8 mg 1X ONCE IV Last administered on 08/28/18at 19:14; Start 08/28/18 at 19:15; Stop 08/28/18 at 19:16; Status DC Morphine Sulfate (Morphine 4mg Syringe) 4 mg 1X ONCE IV Last administered on 08/28/18at 19:15; Start 08/28/18 at 19:15; Stop 08/28/18 at 19:16; Status DC Famotidine (Pepcid Vial) 20 mg 1X ONCE IVP Last administered on 08/28/18at 19:14; Start 08/28/18 at 19:15; Stop 08/28/18 at 19:16; Status DC Levofloxacin (Levaquin) 500 mg 1X ONCE PO Last administered on 08/28/18at 19:14; Start 08/28/18 at 19:15; Stop 08/28/18 at 19:16; Status DC Morphine Sulfate (Morphine 4mg Syringe) 4 mg STK-MED ONCE .ROUTE ; Start 08/28/18 at 19:11; Stop 08/28/18 at 19:12; Status DC Famotidine (Pepcid Vial) 20 mg STK-MED ONCE .ROUTE ; Start 08/28/18 at 19:11; Stop 08/28/18 at 19:12; Status DC Active Scripts Active Levaquin (Levofloxacin) 500 Mg Tablet 500 Mg PO DAILY 5 Days Zofran (Ondansetron Hcl) 8 Mg Tablet 8 Mg PO QIDPRN PRN Percocet 5-325 Mg Tablet (Oxycodone Hcl/Acetaminophen) 1 Each Tablet 2 Tab PO PRN Q6HRS PRN Carafate (Sucralfate) 1 Gm/10 Ml Oral.susp 1 Gm PO QID Zantac (Ranitidine Hcl) 300 Mg Tablet 300 Mg PO BID Omeprazole 40 Mg Capsule.dr 40 Mg PO DAILY Zofran (Ondansetron Hcl) 8 Mg Tablet 8 Mg PO QIDPRN PRN Proair Hfa Inhaler (Albuterol Sulfate) 8.5 Gm Hfa.aer.ad 2 Puff INH PRN Q6HRS PRN Reported Zofran Odt (Ondansetron) 4 Mg Tab.rapdis 1 Tab SL Q8HRS Ketorolac Tromethamine 10 Mg Tablet 1 Tab PO TID (LORETTA STOVALL MD) Dragon Disclaimer This chart was dictated in whole or in part using Voice Recognition software in a busy, high-work load, and often noisy Emergency Department environment. It may contain unintended and wholly unrecognized errors or omissions. (LORETTA STOVALL MD) FELIX CHEUNG DO Aug 28, 2018 17:13 LORETTA STOVALL MD Aug 28, 2018 18:34
[2018-08-28] MEDS ORDERED: ONDANSETRON PF 4 MG/2 ML VIAL. IV ONE ×2 (17:15→19:15)
[2018-08-28] MEDS ORDERED: IV NORMAL SALINE 1,000ML 1,000 ML IV ONE (17:15)
[2018-08-28] MEDS ORDERED: IOHEXOL 300 MG/ML 75 ML VIAL. IV ONE (17:15)
--- NOTE | 2018-08-28 17:54 | RAD ---
CT abdomen and pelvis with contrast PQRS statement: CT scans at this facility use dose reduction including either automated exposure control, iterative reconstructions, and /or weight based radiation dosing via mA and kV modification when appropriate to reduce radiation dose to as low as reasonably achievable. HISTORY: Abdominal pain. History of colon cancer. TECHNIQUE: Helical CT imaging of the abdomen and pelvis was acquired with 75 mL Omnipaque 300 intravenous contrast. COMPARISON: CT abdomen and pelvis April 07, 2018. Abdomen findings: Development of mild pericardial effusion since the prior exam. Lung bases unremarkable. Lumbar disc disease. There is subjectively low wall thickening of the duodenum and mild surrounding ground glass edema as well as thickening of the anterior pararenal fascia new from the prior exam raising the possibility of duodenitis. Thank otitis is less likely given no obvious edema of the adjacent pancreas. Kidneys, adrenals, spleen, liver and gallbladder are unremarkable. Mild stasis within the duodenum. No bowel obstruction evident. Appendix is negative. There is focal circumferential wall thickening and luminal narrowing of the ascending colon on coronal image 24 and on the axial images 43-47 with mild surrounding groundglass edema of the surrounding fat this is similar the prior exam, given the focal nature and persistence raises the possibility of colon adenocarcinoma. Sigmoid diverticulosis. No abdominal fluid or enlarged adenopathy. Pelvis findings: At the right adnexa there is a 3 cm peripherally calcified mass which could be a pedunculated uterine leiomyoma or an ovarian mass, stable. Left adnexa, bladder, rectum and bones are unremarkable. Small volume of dependent pelvic fluid. IMPRESSION: 1. Mild wall thickening and surrounding edema of the duodenum likely duodenitis. Associated pancreatitis is less likely. 2. Focal circumferential soft tissue density and wall thickening narrowing the lumen of the ascending colon, raising concern for adenocarcinoma. Consider correlation with colonoscopy. 3. Appendix is negative. 4. Mild pericardial effusion new from the prior study. 5. 3 cm right adnexal mass likely a pedunculated right uterine fundus leiomyoma versus a right ovarian mass. Electronically signed by: Pedro Hidalgo MD (08/28/2018 5:51 PM) [facility]
[2018-08-28 17:56] LABS: BASO % 1 % (0-3); EOS # 0.1 x10^3/uL (0.0-0.7); EOS % 3 % (0-3); HEMATOCRIT 32.6 % (36.0-47.0); LYMPH # 0.5 x10^3/uL (1.0-4.8); LYMPH % 16 % (24-48); MEAN CORPUSCULAR HEMOGLOBIN 24 pg (25-35); MEAN CORPUSCULAR HGB CONC 31 g/dL (31-37); MEAN CORPUSCULAR VOLUME 78 fL (79-100); MONO # 0.6 x10^3/uL (0.0-1.1); MONO % 18 % (0-9); NEUT % 62 % (31-73); PLATELET COUNT 350 x10^3/uL (140-400); RED BLOOD COUNT 4.19 x10^6/uL (3.50-5.40); RED CELL DISTRIBUTION WIDTH 21.7 % (11.5-14.5); WHITE BLOOD COUNT 3.2 x10^3/uL (4.0-11.0)
[2018-08-28 18:04] LABS: ALBUMIN 2.9 g/dL (3.4-5.0); ALBUMIN/GLOBULIN RATIO 0.9 (1.0-1.7); CALCIUM 8.9 mg/dL (8.5-10.1); CREATININE 0.7 mg/dL (0.6-1.0); GFR 86.6; POTASSIUM 4.2 mmol/L (3.5-5.1); TOTAL BILIRUBIN 0.3 mg/dL (0.2-1.0); TOTAL PROTEIN 6.2 g/dL (6.4-8.2)
[2018-08-28 18:53] LABS: BILIRUBIN,URINE NEG (NEG); CLARITY,URINE CLOUDY; COLOR,URINE YELLOW; GLUCOSE,URINE NEG (NEG); NITRITE,URINE NEG (NEG); UROBILINOGEN,URINE 0.2 mg/dL (0.2 mg/dL)
[2018-08-28 18:54] LABS: BACTERIA,URINE FEW /HPF (0-FEW); RBC,URINE 0 /HPF (0-2); SQUAMOUS EPITHELIAL CELL,UR OCC /LPF
[2018-08-28 19:06] VITALS: BP 163/91
[2018-08-28] MEDS ORDERED: SUCR1ORA5 PO (19:07)
[2018-08-28] MEDS ORDERED: OXYC1TAB15 PO (19:07)
[2018-08-28] MEDS ORDERED: OMEP40CA5 PO (19:07)
[2018-08-28] MEDS ORDERED: ONDA8TAB9 PO (19:07)
[2018-08-28] MEDS ORDERED: RANI300T3 PO (19:07)
[2018-08-28] MEDS ORDERED: LEVO500T59 PO (19:10)
[2018-08-28] MEDS ORDERED: MORPHINE SULFATE 4 MG/ML DISP.SYRIN. ONE (19:11)
[2018-08-28] MEDS ORDERED: FAMOTIDINE 20 MG/2 ML VIAL ONE (19:11)
[2018-08-28] MEDS ORDERED: levoFLOXacin 500 MG TABLET PO ONE (19:15)
[2018-08-28] MEDS ORDERED: MORPHINE SULFATE 4 MG/ML DISP.SYRIN. IV ONE (19:15)
[2018-08-28] MEDS ORDERED: FAMOTIDINE 20 MG/2 ML VIAL IVP ONE (19:15)
[2018-08-28 19:24] LABS: ANISOCYTOSIS MOD; HYPOCHROMIA SLIGHT; MICROCYTOSIS SLIGHT; PLATELET CLUMP PRESENT; PLT ESTIMATE ADEQUATE (ADEQUATE); POIKILOCYTOSIS SLIGHT
[2018-08-28 19:25] LABS: OVALOCYTES OCC
== END 2018-08-28 19:33 | disposition home or self-care (01) ==
LOC: ER 16:41
DX: K29.80 Duodenitis without bleeding (principal); C18.2 Malignant neoplasm of ascending colon; N39.0 Urinary tract infection, site not specified; D72.819 Decreased white blood cell count, unspecified; D50.9 Iron deficiency anemia, unspecified; E46 Unspecified protein-calorie malnutrition; F17.210 Nicotine dependence, cigarettes, uncomplicated; Z68.29 Body mass index [BMI] 29.0-29.9, adult; Z98.890 Other specified postprocedural states; Z88.8 Allergy status to other drugs, medicaments and biological substances
CPT/HCPCS: 36415; 74177; 80053; 81001; 83690; 85025; 87086; 96374; 96375; 96376; 99285; J2270; J2405; J3490; Q9967; J7030

== ENCOUNTER 2018-11-23 09:28 | Emergency (ER) | payer MEDICARE ==
[~2018-11-23] VITALS: Ht 175.3 cm; Wt 94.8 kg
[~2018-11-23 09:28] MED LIST changes: +LEVO500T59 PO; +OMEP40CA5 PO; +OXYC1TAB15 PO; +RANI300T3 PO; +SUCR1ORA5 PO
[2018-11-23] MEDS ORDERED: IOHEXOL 350 MG/ML 100 ML VIAL. IV ONE (10:00)
--- NOTE | 2018-11-23 10:05 | PHYS DOC ---
Past History Past Medical History: Cancer, Depression, DVT, Pancreatitis, UTI, Other Additional Past Medical Histor: " fluid around my heart" Past Surgical History: Cancer Surgery, , Other Additional Past Surgical Histo: port on Left chest Smoking: Cigarettes Alcohol Use: Sober Drug Use: None Adult General Chief Complaint Chief Complaint: MULTIPLE COMPLAINTS HPI HPI Patient is a pleasant 58-year-old female who presents to the emergency department for evaluation. She has a history of metastatic colon cancer, and is currently undergoing chemotherapy, last treatment was 3 weeks ago. She is scheduled for an oncology visiting chemotherapy tomorrow. She states that yesterday, she developed a "fullness" in her chest, radiating in to her neck, which is only present with deep breathing. She DENIES having had any shortness of breath, or any other chest pain, including exertional chest pain. She has no history of coronary artery disease. She denies any dizziness or lightheadedness or cough. She does have a history of what sounds like a pericardial effusion, which was managed expectantly. She called her oncologist, and was instructed to come to the emergency department for evaluation. There are no alleviating or exacerbating factors to her symptoms except as noted above. She does have a past history of DVT, and is currently on Lovenox, having failed oral anticoagulant therapy. She has never had a pulmonary embolism. Review of Systems Review of Systems Constitutional: Denies fever or chills [] Eyes: Denies change in visual acuity, redness, or eye pain [] HENT: Denies nasal congestion or sore throat [] Respiratory: Denies cough or shortness of breath [] Cardiovascular: No additional information not addressed in HPI [] GI: Denies abdominal pain, nausea, vomiting, bloody stools or diarrhea [] : Denies dysuria or hematuria [] Musculoskeletal: Denies back pain or joint pain [] Integument: Denies rash or skin lesions [] Neurologic: Denies headache, focal weakness or sensory changes [] Endocrine: Denies polyuria or polydipsia [] All other systems were reviewed and found to be within normal limits, except as documented in this note. Allergies Allergies Allergies Coded Allergies Type Severity Reaction Last Updated Verified apixaban Allergy Severe SOB 04/07/18 Yes Physical Exam Physical Exam PHYSICAL EXAM: CONSTITUTIONAL: Well developed, well nourished HEAD: normocephalic, atraumatic EENT: PERRL, EOMI. Conjunctivae normal color, sclerae non-icteric; moist mucous membranes. NECK: Supple, non-tender; no meningismus. LUNGS: There are diminished breath sounds at the bases bilaterally, with some mild crackles, otherwise lungs CTA, breathing even and unlabored. Normal air movement. HEART: Regular rate and rhythm, no murmur, heart sounds are not distant. CHEST: No deformity; non-tender ABDOMEN: The abdomen is soft, and non-tender, no masses or bruits. EXTREM: Normal ROM; no deformity, no calf tenderness. Normal pulses palpable in all extremities. There is no pedal edema. SKIN: No rash; no diaphoresis NEURO: Alert; normal speech and cognition; CN's grossly intact; strength grossly intact without focal deficit. BACK: No CVA TTP. Current Patient Data Vital Signs Vital Signs Date Time Temp Pulse Resp B/P (MAP) Pulse Ox O2 Delivery O2 Flow Rate FiO2 11/23/18 09:38 98.3 104 16 100 Room Air Lab Results Laboratory Tests Test 11/23/18 09:57 White Blood Count 4.5 x10^3/uL Red Blood Count 4.27 x10^6/uL Hemoglobin 10.9 g/dL Hematocrit 34.4 % Mean Corpuscular Volume 81 fL Mean Corpuscular Hemoglobin 26 pg Mean Corpuscular Hemoglobin Concent 32 g/dL Red Cell Distribution Width 26.2 % Platelet Count 319 x10^3/uL Neutrophils (%) (Auto) 74 % Lymphocytes (%) (Auto) 10 % Monocytes (%) (Auto) 14 % Eosinophils (%) (Auto) 2 % Basophils (%) (Auto) 1 % Neutrophils # (Auto) 3.3 x10^3uL Lymphocytes # (Auto) 0.4 x10^3/uL Monocytes # (Auto) 0.6 x10^3/uL Eosinophils # (Auto) 0.1 x10^3/uL Basophils # (Auto) 0.0 x10^3/uL Platelet Estimate Adequate Large Platelets Occ Polychromasia Present Hypochromasia Slight Poikilocytosis Slight Anisocytosis Slight Microcytosis Slight Ovalocytes Present Prothrombin Time < 9.3 SEC Prothromb Time International Ratio 0.9 Activated Partial Thromboplast Time 29 SEC Sodium Level 135 mmol/L Potassium Level 3.7 mmol/L Chloride Level 100 mmol/L Carbon Dioxide Level 27 mmol/L Anion Gap 8 Blood Urea Nitrogen 7 mg/dL Creatinine 0.8 mg/dL Estimated GFR (Cockcroft-Gault) 74.2 BUN/Creatinine Ratio 9 Glucose Level 93 mg/dL Calcium Level 8.7 mg/dL Total Bilirubin 0.2 mg/dL Aspartate Amino Transf (AST/SGOT) 20 U/L Alanine Aminotransferase (ALT/SGPT) 16 U/L Alkaline Phosphatase 95 U/L Troponin I Quantitative < 0.017 ng/mL XF-Nxi-F-Type Natriuretic Peptide 257 pg/mL Total Protein 6.5 g/dL Albumin 2.6 g/dL Albumin/Globulin Ratio 0.7 Lipase 134 U/L Current Medications Medications (Trade) Dose Ordered Sig/Al Route PRN Reason Start Time Stop Time Status Last Admin Dose Admin Iohexol (Omnipaque 350 Mg/ml) 100 ml 1X ONCE IV 11/23/18 10:00 11/23/18 10:01 DC 11/23/18 10:26 EKG EKG Normal sinus rhythm a rate of 92 beats for minute, left axis deviation, normal intervals. There are no acute ischemic ST/T changes.[] Radiology/Procedures Radiology/Procedures PROCEDURE: PORTABLE CHEST 1V PORTABLE CHEST 1V Clinical indications: Chest pain. COMPARISON: July 15, 2018. Findings: Small bilateral pleural effusions are now evident. No perihilar pulmonary edema or lung consolidation is seen. No pneumothorax is evident. The heart size is now enlarged. Mediastinum and pulmonary vasculature are unremarkable. Left subclavian Port-A-Cath is unchanged in position. IMPRESSION: Cardiomegaly is now evident which may be due to dilated cardiomyopathy or pericardial effusion. Small bilateral pleural effusions. [] PROCEDURE: CT ANGIOGRAPHY CHEST Examination: CT ANGIOGRAPHY CHEST History: Pleuritic pain, history of DVTs, colon cancer Comparison/Correlation: 02/16/2019 CTA of the chest Findings: Axial images of chest were obtained following IV contrast according to pulmonary arteriography protocol. Maximum intensity projection images were provided. Sagittal and coronal reformatted images were provided. Left-sided infusion port catheter is present. There is a moderate to large pericardial effusion. Small to moderate right pleural effusion is present. Small left pleural effusion is present. Minimal adjacent atelectasis. Thoracic aorta is unremarkable. Pulmonary arterial vasculature is normal with no thromboembolic disease. Mild bilateral lower lobe bronchial wall thickening compatible with bronchitis is noted and this is greater on the left. Right lateral upper thoracic pulmonary nodule measuring less than 0.4 cm diameter is stable. No enlarged thoracic lymph nodes. Partially visualized upper abdomen is unremarkable. Impression: Moderate to large pericardial effusion. No pulmonary arterial thromboembolic disease. Bilateral pleural effusions with minimal atelectasis. Stable right upper lung pulmonary nodule. Bilateral lower lobe bronchitis greater on the left. Course & Med Decision Making Course & Med Decision Making Pertinent Labs and Imaging studies reviewed. (See chart for details) []11:25 AM: The patient's condition remains stable. She remains without signs of cardiac tamponade. Her heart rate 83, blood pressure 163/87. I spoke with the patient's oncologist, Dr. Willis, who recommended I contact cardiology. Cardiology on-call has been paged. 11:50 AM: Cardiology recommended a stat echo. Stat echo is not available at this facility at this time. The patient will thus need to be transferred for further evaluation. 12:05 PM: I spoke with Dr. Rodriguez, hospitalist at [facility], who accepted the patient in transfer for echocardiogram and cardiology evaluation. Dragon Disclaimer Dragon Disclaimer This electronic medical record was generated, in whole or in part, using a voice recognition dictation system. Departure Departure: Impression: Primary Impression: Pericardial effusion Additional Impressions: Metastatic colon cancer in female Anticoagulated Disposition: 02 XFER SHT-TRM HOSP Condition: GOOD Referrals: CRAOLINE REDDY (PCP) Problem Qualifiers THOMPSON NIEVES MD Nov 23, 2018 10:05
[2018-11-23 10:11] LABS: BASO % 1 % (0-3); EOS # 0.1 x10^3/uL (0.0-0.7); EOS % 2 % (0-3); HEMATOCRIT 34.4 % (36.0-47.0); HEMOGLOBIN 10.9 g/dL (12.0-15.5); LYMPH # 0.4 x10^3/uL (1.0-4.8); LYMPH % 10 % (24-48); MEAN CORPUSCULAR HEMOGLOBIN 26 pg (25-35); MEAN CORPUSCULAR HGB CONC 32 g/dL (31-37); MEAN CORPUSCULAR VOLUME 81 fL (79-100); MONO # 0.6 x10^3/uL (0.0-1.1); MONO % 14 % (0-9); NEUT # 3.3 x10^3uL (1.8-7.7); NEUT % 74 % (31-73); PLATELET COUNT 319 x10^3/uL (140-400); RED BLOOD COUNT 4.27 x10^6/uL (3.50-5.40); RED CELL DISTRIBUTION WIDTH 26.2 % (11.5-14.5); WHITE BLOOD COUNT 4.5 x10^3/uL (4.0-11.0)
[2018-11-23 10:34] LABS: ALBUMIN 2.6 g/dL (3.4-5.0); ALBUMIN/GLOBULIN RATIO 0.7 (1.0-1.7); CALCIUM 8.7 mg/dL (8.5-10.1); CREATININE 0.8 mg/dL (0.6-1.0); GFR 74.2; POTASSIUM 3.7 mmol/L (3.5-5.1); TOTAL BILIRUBIN 0.2 mg/dL (0.2-1.0); TOTAL PROTEIN 6.5 g/dL (6.4-8.2)
[2018-11-23 10:46] LABS: PLT ESTIMATE ADEQUATE (ADEQUATE); POLYCHROMASIA PRESENT
[2018-11-23 10:47] LABS: ANISOCYTOSIS SLIGHT; HYPOCHROMIA SLIGHT; MICROCYTOSIS SLIGHT; OVALOCYTES PRESENT; POIKILOCYTOSIS SLIGHT
--- NOTE | 2018-11-23 10:47 | RAD ---
PORTABLE CHEST 1V Clinical indications: Chest pain. COMPARISON: July 15, 2018. Findings: Small bilateral pleural effusions are now evident. No perihilar pulmonary edema or lung consolidation is seen. No pneumothorax is evident. The heart size is now enlarged. Mediastinum and pulmonary vasculature are unremarkable. Left subclavian Port-A-Cath is unchanged in position. IMPRESSION: Cardiomegaly is now evident which may be due to dilated cardiomyopathy or pericardial effusion. Small bilateral pleural effusions. Electronically signed by: Noble Griffin MD (11/23/2018 10:44 AM) [id number]
--- NOTE | 2018-11-23 11:05 | RAD ---
Examination: CT ANGIOGRAPHY CHEST History: Pleuritic pain, history of DVTs, colon cancer Comparison/Correlation: 02/16/2019 CTA of the chest Findings: Axial images of chest were obtained following IV contrast according to pulmonary arteriography protocol. Maximum intensity projection images were provided. Sagittal and coronal reformatted images were provided. Left-sided infusion port catheter is present. There is a moderate to large pericardial effusion. Small to moderate right pleural effusion is present. Small left pleural effusion is present. Minimal adjacent atelectasis. Thoracic aorta is unremarkable. Pulmonary arterial vasculature is normal with no thromboembolic disease. Mild bilateral lower lobe bronchial wall thickening compatible with bronchitis is noted and this is greater on the left. Right lateral upper thoracic pulmonary nodule measuring less than 0.4 cm diameter is stable. No enlarged thoracic lymph nodes. Partially visualized upper abdomen is unremarkable. Impression: Moderate to large pericardial effusion. No pulmonary arterial thromboembolic disease. Bilateral pleural effusions with minimal atelectasis. Stable right upper lung pulmonary nodule. Bilateral lower lobe bronchitis greater on the left. PQRS Compliance Statement: One or more of the following individualized dose reduction techniques were utilized for this examination: 1. Automated exposure control 2. Adjustment of the mA and/or kV according to patient size 3. Use of iterative reconstruction technique Electronically signed by: Craig Rincon MD (11/23/2018 11:02 AM) [facility]
--- NOTE | 2018-11-23 12:51 | EKG ---
[address] [address] Test Date: 2018-11-23 Test Time: 09:50:16 Pat Name: HERNANDO MCNAMARA Department: Room: Gender: F [employer]: : [id number] Requested By: THOMPSON NIEVES Order Number: [id number] Reading MD: Measurements Intervals Lind Rate: 92 P: 29 DC: 156 QRS: -27 QRSD: 68 T: 47 QT: 322 QTc: 403 Interpretive Statements SINUS RHYTHM LEFTWARD AXIS QRS(T) CONTOUR ABNORMALITY CONSISTENT WITH INFERIOR INFARCT PROBABLY OLD ABNORMAL ECG RI6.01 No previous ECG available for comparison
[2018-11-23 13:00] VITALS: BP 154/96
== END 2018-11-23 13:20 | disposition short-term general hospital (02) ==
LOC: ER 09:28
DX: I31.3 Pericardial effusion (noninflammatory) (principal); C18.9 Malignant neoplasm of colon, unspecified; F17.210 Nicotine dependence, cigarettes, uncomplicated; Z86.718 Personal history of other venous thrombosis and embolism; Z87.440 Personal history of urinary (tract) infections; Z79.01 Long term (current) use of anticoagulants; Z98.890 Other specified postprocedural states; Z88.8 Allergy status to other drugs, medicaments and biological substances
CPT/HCPCS: 36415; 71045; 71275; 80053; 83690; 83880; 84484; 85025; 85610; 85730; 93005; 99285; Q9967

== ENCOUNTER 2019-01-08 15:10 | Emergency (ER) | payer MEDICARE ==
[~2019-01-08] VITALS: Ht 175.3 cm; Wt 88.7 kg
[~2019-01-08 15:10] MED LIST changes: +OMEP40CA45 PO; -OMEP40CA5 PO
--- NOTE | 2019-01-08 16:37 | RAD ---
CT abdomen pelvis without contrast dated 01/08/2019. Comparison made to 08/28/2018. Clinical indication: Left flank pain. TECHNIQUE: Contiguous axial imaging of the pelvis performed without the administration of IV or oral contrast. FINDINGS: Images of lung bases show small right pleural effusion. There is also a small pericardial effusion. Vague groundglass nodular density in the left lower lobe measuring about 1.6 cm, new from prior exam. Lung bases are otherwise clear. Solid abdominal viscera not well evaluated in the absence of contrast material. No apparent attenuation abnormality of the liver or spleen. Pancreas, adrenal glands, gallbladder are stable in appearance. There is some hazy increased attenuation in the peripancreatic fat with a few borderline enlarged mesenteric lymph nodes,, increased in size and number from prior study. Kidneys are symmetric in size and attenuation. No calcific renal or ureteral stone. No hydronephrosis. Partially opacified GI tract normal in caliber and contour. There is an area of wall thickening involving the right colon just distal to the ileocecal valve, best seen on coronal images 36 through 51.. This is similar to prior study. There is also some mild wall thickening of the descending duodenum, unchanged. The appendix is normal in caliber. GI tract is otherwise unremarkable. No lymphadenopathy. Abdominal aorta normal in caliber. Small umbilical hernia containing only fat. Images of pelvis show nondistended urinary bladder. Hyperdense nodular focus at the right adnexa could represent an exophytic fibroid or hyperdense lesion associated with the right ovary. This measures 3.3 cm in size, unchanged. No free pelvic fluid. No pelvic adenopathy. Bone windows show no acute findings. Multilevel spondylosis. IMPRESSION: 1. There is hazy increased attenuation of the peripancreatic and central mesenteric fat with mildly enlarged mesenteric lymph nodes that in size and number from prior study. This is nonspecific but could be related to chronic inflammatory process. Consider acute on chronic pancreatitis or mesenteric panniculitis or chronic descending duodenal peptic ulcer disease. 2. Focal zone of wall thickening involving the ascending colon is unchanged 2 somewhat more prominent from prior exam, suspicious for primary colon malignancy. Correlate with recent colonoscopy. 3. Hyperdense nodular focus at the right adnexa is unchanged in could represent pedunculated fibroid or primary ovarian lesion. Correlation with pelvic ultrasound may be warranted. 4. Small right pleural effusion, new from prior study. Small pericardial effusion, unchanged. 5. Vague groundglass nodular density in the left lower lobe is new from prior exam and presumably inflammatory. Follow-up imaging to ensure stability. Electronically signed by: Velasquez Almanza MD (01/08/2019 4:34 PM) [facility]
[2019-01-08 16:38] LABS: BASO % 1 % (0-3); EOS # 0.1 x10^3/uL (0.0-0.7); EOS % 2 % (0-3); HEMATOCRIT 38.2 % (36.0-47.0); LYMPH # 0.4 x10^3/uL (1.0-4.8); LYMPH % 8 % (24-48); MEAN CORPUSCULAR HEMOGLOBIN 25 pg (25-35); MEAN CORPUSCULAR HGB CONC 31 g/dL (31-37); MEAN CORPUSCULAR VOLUME 79 fL (79-100); MONO # 0.3 x10^3/uL (0.0-1.1); MONO % 6 % (0-9); NEUT # 4.3 x10^3uL (1.8-7.7); NEUT % 84 % (31-73); PLATELET COUNT 340 x10^3/uL (140-400); RED BLOOD COUNT 4.83 x10^6/uL (3.50-5.40); RED CELL DISTRIBUTION WIDTH 21.6 % (11.5-14.5); WHITE BLOOD COUNT 5.2 x10^3/uL (4.0-11.0)
[2019-01-08 16:55] LABS: ALBUMIN 2.8 g/dL (3.4-5.0); ALBUMIN/GLOBULIN RATIO 0.8 (1.0-1.7); CALCIUM 9.1 mg/dL (8.5-10.1); CREATININE 0.6 mg/dL (0.6-1.0); GFR 103.4; TOTAL BILIRUBIN 0.2 mg/dL (0.2-1.0); TOTAL PROTEIN 6.2 g/dL (6.4-8.2)
[2019-01-08 16:56] LABS: POTASSIUM 4.5 mmol/L (3.5-5.1)
[2019-01-08 17:00] LABS: PLT ESTIMATE ADEQUATE (ADEQUATE)
[2019-01-08 17:01] LABS: ANISOCYTOSIS SLIGHT; HYPOCHROMIA SLIGHT; MICROCYTOSIS SLIGHT; OVALOCYTES PRESENT; POIKILOCYTOSIS SLIGHT; POLYCHROMASIA SLIGHT
[2019-01-08 17:02] LABS: TEAR DROP CELLS PRESENT
[2019-01-08 17:54] LABS: CLARITY,URINE CLEAR; COLOR,URINE ORANGE
[2019-01-08 17:55] LABS: BILIRUBIN,URINE NEG (NEG)
[2019-01-08 17:57] LABS: BACTERIA,URINE 0 /HPF (0-FEW); RBC,URINE RARE /HPF (0-2); SQUAMOUS EPITHELIAL CELL,UR OCC /LPF; WBC,URINE OCC /HPF (0-4)
[2019-01-08] MEDS ORDERED: MORPHINE SULFATE 4 MG/ML DISP.SYRIN. IV ONE (18:00)
[2019-01-08] MEDS ORDERED: ONDANSETRON PF 4 MG/2 ML VIAL. IVP ONE (18:00)
[2019-01-08] MEDS ORDERED: OXYC-325 PO (18:14)
[2019-01-08] MEDS ORDERED: LEVO750T31 PO (18:14)
--- NOTE | 2019-01-08 18:17 | PHYS DOC ---
Past History Past Medical History: Cancer, Depression, DVT, Pancreatitis, UTI, Other Additional Past Medical Histor: " fluid around my heart" Past Surgical History: Cancer Surgery, , Other Additional Past Surgical Histo: port on Left chest Smoking: Cigarettes Alcohol Use: Sober Drug Use: None Adult General Chief Complaint Chief Complaint: BACK PAIN OR INJURY HPI HPI Patient is a 58-year-old female presenting with left lower back pain related to the left groin no bowel or bladder incontinence no numbness or tingling pain is severe she is taking Tylenol only it is really not helped the pain is worse with palpation and movement and twisting. She has not had any specific trauma that she can identify she does have a known history of degenerative disc disease. Review of Systems Review of Systems Constitutional: Denies fever or chills [] Eyes: Denies change in visual acuity, redness, or eye pain [] HENT: Denies nasal congestion or sore throat [] Respiratory:h [] Musculoskeletal Neurologic: Denies headache, focal weakness or sensory changes [] Endocrine: Denies polyuria or polydipsia [] All other systems were reviewed and found to be within normal limits, except as documented in this note. Current Medications Current Medications Current Medications Medications (Trade) Dose Ordered Sig/Al Start Time Stop Time Status Last Admin Dose Admin Levofloxacin (Levaquin) 500 mg 1X ONCE 01/08/19 18:45 01/08/19 18:46 Morphine Sulfate (Morphine 4mg Syringe) 4 mg 1X ONCE 01/08/19 18:00 01/08/19 18:01 DC 01/08/19 17:39 4 MG Ondansetron HCl (Zofran) 4 mg 1X ONCE 01/08/19 18:00 01/08/19 18:01 DC 01/08/19 17:39 4 MG Oxycodone/ Acetaminophen (Percocet 5/325) 2 tab 1X ONCE 01/08/19 18:45 01/08/19 18:46 Allergies Allergies Allergies Coded Allergies Type Severity Reaction Last Updated Verified apixaban Allergy Severe SOB 11/23/18 Yes Physical Exam Physical Exam Constitutional: Well developed, well nourished, no acute distress, non-toxic appearance. [] HENT: Normocephalic, atraumatic, bilateral external ears normal, oropharynx moist, no oral exudates, nose normal. [] Eyes: PERRLA, EOMI, conjunctiva normal, no discharge. [] Neck: Normal range of motion, no tenderness, supple, no stridor. [] Cardiovascular:Heart rate regular rhythm, no murmur [] Lungs & Thorax: Bilateral breath sounds clear to auscultation [] Abdomen: Bowel sounds normal, soft, no tenderness, no masses, no pulsatile masses. [] Skin: Warm, dry, no erythema, no rash. [] Back: There is left paraspinous tenderness to palpation no focal midline tenderness distal function is intact sensory and strength Extremities: No tenderness, no cyanosis, no clubbing, ROM intact, no edema. [] Neurologic: Alert and oriented X 3, normal motor function, normal sensory function, no focal deficits noted. [] Psychologic: Affect normal, judgement normal, mood normal. [] Current Patient Data Vital Signs Vital Signs Date Time Temp Pulse Resp B/P (MAP) Pulse Ox O2 Delivery O2 Flow Rate FiO2 01/08/19 17:39 18 98 Room Air 01/08/19 16:05 98.0 76 Lab Results Laboratory Tests Test 01/08/19 16:18 01/08/19 17:17 White Blood Count 5.2 x10^3/uL (4.0-11.0) Red Blood Count 4.83 x10^6/uL (3.50-5.40) Hemoglobin 12.0 g/dL (12.0-15.5) Hematocrit 38.2 % (36.0-47.0) Mean Corpuscular Volume 79 fL (79-100) Mean Corpuscular Hemoglobin 25 pg (25-35) Mean Corpuscular Hemoglobin Concent 31 g/dL (31-37) Red Cell Distribution Width 21.6 % (11.5-14.5) H Platelet Count 340 x10^3/uL (140-400) Neutrophils (%) (Auto) 84 % (31-73) H Lymphocytes (%) (Auto) 8 % (24-48) L Monocytes (%) (Auto) 6 % (0-9) Eosinophils (%) (Auto) 2 % (0-3) Basophils (%) (Auto) 1 % (0-3) Neutrophils # (Auto) 4.3 x10^3uL (1.8-7.7) Lymphocytes # (Auto) 0.4 x10^3/uL (1.0-4.8) L Monocytes # (Auto) 0.3 x10^3/uL (0.0-1.1) Eosinophils # (Auto) 0.1 x10^3/uL (0.0-0.7) Basophils # (Auto) 0.0 x10^3/uL (0.0-0.2) Platelet Estimate Adequate (ADEQUATE) Large Platelets Occ Polychromasia Slight Hypochromasia Slight Poikilocytosis Slight Anisocytosis Slight Microcytosis Slight Tear Drop Cells Present Ovalocytes Present Sodium Level 136 mmol/L (136-145) Potassium Level 4.5 mmol/L (3.5-5.1) Chloride Level 98 mmol/L (98-107) Carbon Dioxide Level 29 mmol/L (21-32) Anion Gap 9 (6-14) Blood Urea Nitrogen 8 mg/dL (7-20) Creatinine 0.6 mg/dL (0.6-1.0) Estimated GFR (Cockcroft-Gault) 103.4 BUN/Creatinine Ratio 13 (6-20) Glucose Level 80 mg/dL (70-99) Calcium Level 9.1 mg/dL (8.5-10.1) Total Bilirubin 0.2 mg/dL (0.2-1.0) Aspartate Amino Transferase (AST) 52 U/L (15-37) H Alanine Aminotransferase (ALT) 40 U/L (14-59) Alkaline Phosphatase 181 U/L (46-116) H Total Protein 6.2 g/dL (6.4-8.2) L Albumin 2.8 g/dL (3.4-5.0) L Albumin/Globulin Ratio 0.8 (1.0-1.7) L Lipase 440 U/L (73-393) H Urine Collection Type Unknown Urine Color Plato Urine Clarity Clear Urine pH 6.0 Urine Specific [place] <=1.005 Urine Protein (NEG-TRACE) Urine Glucose (UA) mg/dL (NEG) Urine Ketones (Stick) mg/dL (NEG) Urine Blood (NEG) Urine Nitrite (NEG) Urine Bilirubin Neg (NEG) Urine Urobilinogen Dipstick mg/dL (0.2 mg/dL) Urine Leukocyte Esterase (NEG) Urine RBC Rare /HPF (0-2) Urine WBC Occ /HPF (0-4) Urine Squamous Epithelial Cells Occ /LPF Urine Bacteria 0 /HPF (0-FEW) EKG EKG [] Radiology/Procedures Radiology/Procedures [] Impressions: IMPRESSION: 1. There is hazy increased attenuation of the peripancreatic and central mesenteric fat with mildly enlarged mesenteric lymph nodes that in size and number from prior study. This is nonspecific but could be related to chronic inflammatory process. Consider acute on chronic pancreatitis or mesenteric panniculitis or chronic descending duodenal peptic ulcer disease. 2. Focal zone of wall thickening involving the ascending colon is unchanged 2 somewhat more prominent from prior exam, suspicious for primary colon malignancy. Correlate with recent colonoscopy. 3. Hyperdense nodular focus at the right adnexa is unchanged in could represent pedunculated fibroid or primary ovarian lesion. Correlation with pelvic ultrasound may be warranted. 4. Small right pleural effusion, new from prior study. Small pericardial effusion, unchanged. 5. Vague groundglass nodular density in the left lower lobe is new from prior exam and presumably inflammatory. Follow-up imaging to ensure stability. Electronically signed by: Velasquez Almanza MD (01/08/2019 4:34 PM) [facility] Course & Med Decision Making Course & Med Decision Making Pertinent Labs and Imaging studies reviewed. (See chart for details) []58-year-old female with a history of stage IV colon cancer currently getting chemotherapy was presenting with back pain left flank pain radiates to the groin. Neurologically intact no bowel or bladder incontinence CT imaging was negative for acute lumbar compression deformity. Patient felt better in the emergency room after morphine she does have known degenerative disc disease she has an appointment with [facility] on January 21. Regarding her other abnormality she has had a history of pancreatitis in the past her lipase was only mildly elevated she is really not having any upper abdominal discomfort but I did tell her about the CT finding and the need to follow up with her oncologist as soon as possible about that. We also reviewed the other CT finding she knows about the ovarian lesion as well as the ascending colon lesion we will give antibiotics for the left inflammatory lung finding she has been coughing and not feeling great in that regard. She just had a thoracentesis of the right lung last week as well she is waiting for the results of that. Overall she really wants to go home pain control and antibiotic perception were provided and return precautions were discussed in detail. [place] Disclaimer [place] Disclaimer This electronic medical record was generated, in whole or in part, using a voice recognition dictation system. Departure Departure: Impression: Primary Impression: Pneumonia Additional Impression: Back pain Disposition: 01 HOME, SELF-CARE Condition: STABLE Patient Instructions: Back Pain, Adult, [id number] Additional Instructions: IMPRESSION: 1. There is hazy increased attenuation of the peripancreatic and central mesenteric fat with mildly enlarged mesenteric lymph nodes that in size and number from prior study. This is nonspecific but could be related to chronic inflammatory process. Consider acute on chronic pancreatitis or mesenteric panniculitis or chronic descending duodenal peptic ulcer disease. 2. Focal zone of wall thickening involving the ascending colon is unchanged 2 somewhat more prominent from prior exam, suspicious for primary colon malignancy. Correlate with recent colonoscopy. 3. Hyperdense nodular focus at the right adnexa is unchanged in could represent pedunculated fibroid or primary ovarian lesion. Correlation with pelvic ultrasound may be warranted. 4. Small right pleural effusion, new from prior study. Small pericardial effusion, unchanged. 5. Vague groundglass nodular density in the left lower lobe is new from prior exam and presumably inflammatory. Follow-up imaging to ensure stability. Electronically signed by: Velasquez Almanza MD (01/08/2019 4:34 PM) [facility] Scripts Levofloxacin (LEVAQUIN) 750 Mg Tablet 1 TAB PO DAILY for pneumonia for 7 Days, #7 TAB 0 Refills Prov: BEAU LOPEZ MD 01/08/19 Oxycodone HCl/Acetaminophen (Percocet 5-325 mg Tablet) 1 Each Tablet 1 TAB PO PRN TID PRN for PAIN MDD 3 Tablet(s) for 5 Days, #15 TAB 0 Refills Prov: BEAU LOPEZ MD 01/08/19 Problem Qualifiers BEAU LOPEZ MD Jan 08, 2019 18:17
[2019-01-08 18:34] VITALS: BP 126/75
[2019-01-08] MEDS ORDERED: oxyCODONE/APAP 5/325 1 TAB TABLET PO ONE (18:45)
[2019-01-08] MEDS ORDERED: levoFLOXacin 500 MG TABLET PO ONE (18:45)
== END 2019-01-08 18:27 | disposition home or self-care (01) ==
LOC: ER 15:10
DX: J18.9 Pneumonia, unspecified organism (principal); M54.5 Low back pain; Z86.718 Personal history of other venous thrombosis and embolism; R59.0 Localized enlarged lymph nodes; Z87.440 Personal history of urinary (tract) infections; F17.210 Nicotine dependence, cigarettes, uncomplicated; Z98.890 Other specified postprocedural states; Z88.8 Allergy status to other drugs, medicaments and biological substances
CPT/HCPCS: 36415; 74176; 80053; 81001; 83690; 85025; 96374; 96375; 99285; J2270; J2405

== ENCOUNTER 2019-05-10 19:56 | Emergency (ER) | payer MEDICARE ==
[~2019-05-10] VITALS: Ht 172.7 cm; Wt 83.8 kg
[~2019-05-10 19:56] MED LIST changes: +LEVO750T31 PO; +OXYC-325 PO
[2019-05-10 21:15] VITALS: BP 129/72
[2019-05-10] MEDS ORDERED: ONDANSETRON PF 4 MG/2 ML VIAL. IV ONE (21:30)
[2019-05-10] MEDS ORDERED: MORPHINE SULFATE 4 MG/ML DISP.SYRIN. IV ONE (21:30)
[2019-05-10] MEDS ORDERED: IV NORMAL SALINE 1,000ML 1,000 ML IV ONE (21:30)
[2019-05-10 22:16] LABS: BASO % 1 % (0-3); EOS # 0.1 x10^3/uL (0.0-0.7); EOS % 2 % (0-3); HEMATOCRIT 34.1 % (36.0-47.0); LYMPH # 0.2 x10^3/uL (1.0-4.8); LYMPH % 5 % (24-48); MEAN CORPUSCULAR HEMOGLOBIN 26 pg (25-35); MEAN CORPUSCULAR HGB CONC 32 g/dL (31-37); MEAN CORPUSCULAR VOLUME 80 fL (79-100); MONO # 0.7 x10^3/uL (0.0-1.1); MONO % 13 % (0-9); NEUT # 4.1 x10^3uL (1.8-7.7); NEUT % 80 % (31-73); PLATELET COUNT 278 x10^3/uL (140-400); RED BLOOD COUNT 4.28 x10^6/uL (3.50-5.40); RED CELL DISTRIBUTION WIDTH 21.1 % (11.5-14.5); WHITE BLOOD COUNT 5.1 x10^3/uL (4.0-11.0)
[2019-05-10 22:32] LABS: CALCIUM 8.4 mg/dL (8.5-10.1); CREATININE 0.6 mg/dL (0.6-1.0); POTASSIUM 4.1 mmol/L (3.5-5.1)
[2019-05-10 22:39] LABS: ALBUMIN 2.1 g/dL (3.4-5.0); ALBUMIN/GLOBULIN RATIO 0.6 (1.0-1.7); TOTAL BILIRUBIN 0.2 mg/dL (0.2-1.0); TOTAL PROTEIN 5.6 g/dL (6.4-8.2)
[2019-05-10 22:50] LABS: % BANDS 2 % (0-9); % EOS 1 % (0-5); % LYMPHS 3 % (24-48); % MONOS 12 % (0-10); % SEGS 82 % (35-66); ANISOCYTOSIS SLIGHT; POIKILOCYTOSIS SLIGHT
[2019-05-10 22:51] LABS: OVALOCYTES FEW; PLT ESTIMATE ADEQUATE (ADEQUATE)
[2019-05-10 23:47] LABS: BACTERIA,URINE 0 /HPF (0-FEW); BILIRUBIN,URINE NEG (NEG); CLARITY,URINE CLEAR; COLOR,URINE YELLOW; GLUCOSE,URINE NEG (NEG); NITRITE,URINE NEG (NEG); RBC,URINE 0 /HPF (0-2); SQUAMOUS EPITHELIAL CELL,UR OCC /LPF; UROBILINOGEN,URINE 0.2 mg/dL (0.2 mg/dL); WBC,URINE OCC /HPF (0-4)
[2019-05-10] MEDS ORDERED: HYDR-3165 PO (23:57)
--- NOTE | 2019-05-11 00:30 | PHYS DOC ---
Past History Past Medical History: Cancer, UTI, Other Additional Past Medical Histor: Stage IV colon CA, degenerative disc disease, pleural effusion Past Surgical History: Additional Past Surgical Histo: port on Left chest Smoking: Cigarettes Alcohol Use: None Drug Use: None Adult General Chief Complaint Chief Complaint: FLANK PAIN HPI HPI Patient is a 59-year-old female presenting with chief complaint of left upper quadrant pain. She has a longstanding history of chronic pain in this location. She said she has had the pain there for at least 8 months now but it got worse tonight. She says that she is been to see her oncologist and they were thinking that due to the surgery that she has had that maybe it was related to muscle pain or nerve pain. She has lidocaine patches on the area at this time. She also however has a history of pancreatitis and she says this pain got worse ton ight after she ate a meal. She want to get checked for pancreatitis and she has had that before. She is due to restart chemotherapy next week and she wants to make sure everything is in order if she is then that she does not have any obvious signs of infection. She denies fever she denies cough she is denying any urinary symptoms occasionally has hesitancy however denies fever that she knows of. Review of Systems Review of Systems Eyes: Denies change in visual acuity, redness, or eye pain [] HENT: Denies nasal congestion or sore throat [] Respiratory: Denies cough or shortness of breath [] Integument: Denies rash or skin lesions [] Neurologic: Denies headache, focal weakness or sensory changes [] Endocrine: Denies polyuria or polydipsia [] All other systems were reviewed and found to be within normal limits, except as documented in this note. Current Medications Current Medications Current Medications Medications (Trade) Dose Ordered Sig/Al Start Time Stop Time Status Last Admin Dose Admin Morphine Sulfate (Morphine 4mg Syringe) 4 mg 1X ONCE 05/10/19 21:30 05/10/19 21:31 DC 05/10/19 21:53 4 MG Ondansetron HCl (Zofran) 4 mg 1X ONCE 05/10/19 21:30 05/10/19 21:31 DC 05/10/19 21:52 4 MG Sodium Chloride 1,000 ml @ 1,000 mls/hr 1X ONCE 3/9/20 21:30 05/10/19 22:29 DC 05/10/19 21:52 1,000 MLS/HR Allergies Allergies Allergies Coded Allergies Type Severity Reaction Last Updated Verified apixaban Allergy Severe SOB 11/23/18 Yes Physical Exam Physical Exam Constitutional: Well developed, well nourished, no acute distress, non-toxic appearance. [] HENT: Normocephalic, atraumatic, bilateral external ears normal, oropharynx moist, no oral exudates, nose normal. [] Eyes: PERRLA, EOMI, conjunctiva normal, no discharge. [] Neck: Normal range of motion, no tenderness, supple, no stridor. [] Cardiovascular:Heart rate regular rhythm, no murmur [] Lungs & Thorax: Bilateral breath sounds clear to auscultation [] Abdomen: Bowel sounds normal, soft, mild left upper quadrant tenderness with lidocaine patches in place there is no right upper quadrant or right lower quadrant tenderness.] Skin: Warm, dry, no erythema, no rash. [] Extremities: No tenderness, no cyanosis, no clubbing, ROM intact, trace edema Neurologic: Alert and oriented X 3, normal motor function, normal sensory function, no focal deficits noted. [] Psychologic: Affect normal, judgement normal, mood normal. [] Current Patient Data Vital Signs Vital Signs Date Time Temp Pulse Resp B/P (MAP) Pulse Ox O2 Delivery O2 Flow Rate FiO2 05/10/19 21:53 16 96 Room Air 05/10/19 21:15 98.4 101 129/72 (91) Noted lipase mildly elevated similar to previous noted albumin is quite low otherwise labs are fairly stable overall. Lab Results Laboratory Tests Test 05/10/19 21:45 05/10/19 22:40 White Blood Count 5.1 x10^3/uL (4.0-11.0) Red Blood Count 4.28 x10^6/uL (3.50-5.40) Hemoglobin 11.0 g/dL (12.0-15.5) L Hematocrit 34.1 % (36.0-47.0) L Mean Corpuscular Volume 80 fL (79-100) Mean Corpuscular Hemoglobin 26 pg (25-35) Mean Corpuscular Hemoglobin Concent 32 g/dL (31-37) Red Cell Distribution Width 21.1 % (11.5-14.5) H Platelet Count 278 x10^3/uL (140-400) Neutrophils (%) (Auto) 80 % (31-73) H Lymphocytes (%) (Auto) 5 % (24-48) L Monocytes (%) (Auto) 13 % (0-9) H Eosinophils (%) (Auto) 2 % (0-3) Basophils (%) (Auto) 1 % (0-3) Neutrophils # (Auto) 4.1 x10^3uL (1.8-7.7) Lymphocytes # (Auto) 0.2 x10^3/uL (1.0-4.8) L Monocytes # (Auto) 0.7 x10^3/uL (0.0-1.1) Eosinophils # (Auto) 0.1 x10^3/uL (0.0-0.7) Basophils # (Auto) 0.0 x10^3/uL (0.0-0.2) Segmented Neutrophils % 82 % (35-66) H Band Neutrophils % 2 % (0-9) Lymphocytes % 3 % (24-48) L Monocytes % 12 % (0-10) H Eosinophils % 1 % (0-5) Platelet Estimate Adequate (ADEQUATE) Poikilocytosis Slight Anisocytosis Slight Ovalocytes Few Sodium Level 134 mmol/L (136-145) L Potassium Level 4.1 mmol/L (3.5-5.1) Chloride Level 99 mmol/L (98-107) Carbon Dioxide Level 28 mmol/L (21-32) Anion Gap 7 (6-14) Blood Urea Nitrogen 8 mg/dL (7-20) Creatinine 0.6 mg/dL (0.6-1.0) Estimated GFR (Cockcroft-Gault) 103.0 BUN/Creatinine Ratio 13 (6-20) Glucose Level 82 mg/dL (70-99) Calcium Level 8.4 mg/dL (8.5-10.1) L Total Bilirubin 0.2 mg/dL (0.2-1.0) Aspartate Amino Transferase (AST) 42 U/L (15-37) H Alanine Aminotransferase (ALT) 50 U/L (14-59) Alkaline Phosphatase 343 U/L (46-116) H Total Protein 5.6 g/dL (6.4-8.2) L Albumin 2.1 g/dL (3.4-5.0) L Albumin/Globulin Ratio 0.6 (1.0-1.7) L Lipase 461 U/L (73-393) H Urine Collection Type Unknown Urine Color Yellow Urine Clarity Clear Urine pH 7.0 Urine Specific [place] 1.010 Urine Protein Neg (NEG-TRACE) Urine Glucose (UA) Neg mg/dL (NEG) Urine Ketones (Stick) Neg mg/dL (NEG) Urine Blood Neg (NEG) Urine Nitrite Neg (NEG) Urine Bilirubin Neg (NEG) Urine Urobilinogen Dipstick 0.2 mg/dL (0.2 mg/dL) Urine Leukocyte Esterase Neg (NEG) Urine RBC 0 /HPF (0-2) Urine WBC Occ /HPF (0-4) Urine Squamous Epithelial Cells Occ /LPF Urine Bacteria 0 /HPF (0-FEW) EKG EKG [] Radiology/Procedures Radiology/Procedures [] Course & Med Decision Making Course & Med Decision Making Pertinent Labs and Imaging studies reviewed. (See chart for details) [] 59-year-old female with a prior history of stage IV colon cancer who is due to restart chemotherapy next week prior history of pancreatitis prior UTIs with ureteral stent status post removal who is presenting with chief complaint left upper quadrant pain after eating I suspect there is a component of chronic pancreatitis I reviewed her last CT scan last time most recent in the system in January 2019 which did show some haziness of the pancreatic head she says that she did follow-up with her oncologist about that and they are monitoring it she says that she is being referred to GI for pancreatitis. She is also due to restart chemotherapy next week as well. Overall in the emergency room we gave the patient some treatment as noted above and she felt much better. Again labs are pretty stable she is really eager to go home I think this is reasonable no signs of obvious bacterial infection I do not think that based on her abdominal examination and lab work that we need to reimage her at this time and she agrees. Return precautions were discussed and she voiced understanding of the instructions. Clear liquid diet for 24 hours and follow-up with primary oncologist [place] Disclaimer [place] Disclaimer This electronic medical record was generated, in whole or in part, using a voice recognition dictation system. Departure Departure: Impression: Primary Impression: Abdominal pain Disposition: HOME, SELF-CARE Condition: STABLE Patient Instructions: Abdominal Pain (Nonspecific) Scripts Hydrocodone Bit/Acetaminophen (NORCO 5-325 TABLET) 1 Each Tablet 1-2 TAB PO Q4-6HRS PRN for PAIN, #15 TAB Prov: BEAU LOPEZ MD 05/10/19 BEAU LOPEZ MD May 11, 2019 00:30
== END 2019-05-11 00:30 | disposition home or self-care (01) ==
LOC: ER 19:56
DX: R10.12 Left upper quadrant pain (principal); F17.210 Nicotine dependence, cigarettes, uncomplicated; Z85.9 Personal history of malignant neoplasm, unspecified; Z98.890 Other specified postprocedural states; Z88.8 Allergy status to other drugs, medicaments and biological substances
CPT/HCPCS: 36415; 80053; 81001; 83690; 85007; 85025; 96374; 96375; 99284; J2270; J2405; J7030